=== PATIENT | male | born 1970 | race Caucasian/White ===

== ENCOUNTER → 2017-09-20 | Outpatient (CLI) | payer BC ==
--- NOTE | 2017-09-20 11:41 | US ---
EXAMINATION TYPE: US renal artery duplex complet DATE OF EXAM: 09/20/2017 COMPARISON: NONE CLINICAL HISTORY: I10 Essential hypertension x 10 years; HT 5'11, WT 305lbs US exam is technically limited by overlying bowel gas and large body habitus for Renal Artery, etc., Doppler Assessment. MEASUREMENTS: RENAL SIZE: Rt Kidney: 11.8 x 6.2 x 4.7cm Lt Kidney: 11.6 x 6.8 x 6.9cm RESISTANCE INDEX Right: 0.65 mid Left: 0.63 mid RA/AO RATIO (< 3.5 ) Right: 0.9 Left: 0.8 RA VELOCITY ( < 180 cm/s) Right: 90.8cm/s proximally Left: 85.1cm/s proximally Aorta: size is wnl and vessel is limitedly seen due to large abdominal habitus. Right kidney: no hydronephrosis or masses are seen. Incidental right liver cyst is seen = 1.0 x 0.8 x 0.7cm. Left kidney: mid pole cyst = 1.8 x 1.7 x 1.4cm. Small calcification seen posterior to cyst may be ves dhruv wall calcification with posterior shadowing. IMPRESSION: 1. No sonographic evidence of renal arterial stenosis. 2. Slightly limiting evaluation of the abdominal aorta due to patient body habitus. 3. Incidentally noted hepatic cyst and left renal cyst.
== END | disposition home or self-care (01) ==
LOC: RADUSMAIN 08:45
PROVIDERS: ATTEND Family Medicine
DX: R93.5 Abnormal findings on diagnostic imaging of other abdominal regions, including retroperitoneum (principal); I10 Essential (primary) hypertension
CPT/HCPCS: 93975

== ENCOUNTER → 2018-02-05 | Outpatient (CLI) | payer BC ==
--- NOTE | 2018-02-05 11:21 | US ---
EXAMINATION TYPE: US abdomen complete DATE OF EXAM: 02/05/2018 COMPARISON: None CLINICAL HISTORY: R14.0 ABD DISTENSION. Pt complains of ABD bloating EXAM MEASUREMENTS: Liver Length: 19.3 cm Gallbladder Wall: 0.2 cm CBD: 0.5 cm Spleen: 12.6 cm Right Kidney: 11.3 x 6.1 x 6.2 cm Left Kidney: 11.7 x 6.5 x 6.5 cm Large pt body habitus, difficult and limited exam Pancreas: Difficult to visualize due to large pt body habitus Liver: Liver difficult to penetrate, Heterogeneous, Multiple cysts, one in left lobe= 0.9 x 1.1 x 0. 8 cm and one visualized within right lobe anterior to GB= 1.6 x 1.3 x 1.2 cm Gallbladder: wnl Evidence for sonographic Zamudio's sign: No CBD: wnl Spleen: wnl Right Kidney: Appeared wnl Left Kidney: Cyst mid= 2.0 x 1.5 x 1.6 cm, laterally shows possible lesion with calcification= 1.8 x 1.5 x 2.8 cm Upper IVC: wnl Abd Aorta: Obscured by overlying bowel gas Visualized pancreas is heterogeneous, significant portions are suboptimally evaluated due to shadowin g from overlying bowel gas and patient's large body habitus. Aorta is suboptimally evaluated on image s saved. IVC is seen at hepatic dome. Visualized liver is heterogeneously hyperechoic. Evaluation for focal masses is suboptimal due to the heterogeneity. No intrahepatic ductal dilatation is seen. Gall bladder is evident without shadowing mobile gallstones. Technologist whyte simple appearing 1.[address] in the left kidney on image 48. There is shadowing hyperechoic focus could reflect 1.5 cm calculus laterally left kidney on current study. IMPRESSION: Suboptimal study without focal ascites. Possible new large left-sided renal calculus vers us calcified mass. Consider plain film correlation. Suspect diffuse fatty infiltration of liver.
== END | disposition home or self-care (01) ==
LOC: RADUSWWP 10:42
PROVIDERS: ATTEND Family Medicine
DX: R14.0 Abdominal distension (gaseous) (principal)
CPT/HCPCS: 76700

== ENCOUNTER → 2019-04-29 | Day surgery (SDC) | payer BC ==
[2019-04-27 15:56] VITALS: BMI 43.0
[~2019-04-29] MED LIST: LACTATED RINGERS 1,000 ML IV ONE; LACTATED RINGERS 1,000 ML IV SCH; LIDOCAINE 1% (10MG/ML) FOR IV START INTRADERMA PRN; LIDOCAINE 1% INJ 10MG/ML (20 ML MDV) ONE; PROPOFOL 10 MG/ML 20 ML VIAL IV ONE
[2019-04-29 08:52] VITALS: TEMP 97.2
--- NOTE | 2019-04-29 10:20 | P.PCN ---
Date of Procedure: 04/29/19 Description of Procedure: PREOPERATIVE DIAGNOSIS: Gastroesophageal reflux disease. Morbid obesity. POSTOPERATIVE DIAGNOSIS: Morbid obesity. Gastritis. Gastroesophageal reflux disease. OPERATION: Esophagogastroduodenoscopy with biopsies along antrum. SURGEON: Nieves Villalobos MD ANESTHESIA: MAC. INDICATIONS: The patient is a 49-year-old male who presents with a history of reflux disease. Benefits and risks of the procedure were described. Informed consent was obtained. DESCRIPTION: The patient was brought into the endoscopy suite and laid in the left lateral decubitus position. An Olympus gastroscope was passed along the posterior oropharynx down to the distal esophagus where the squamocolumnar junction was encountered at 46 cm from the incisors. The stomach was entered and no bile reflux was found. Additional findings are listed below. Biopsies with cold forceps were obtained of the antrum. The first through third portion of the duodenum was examined and unremarkable. Retroflexion of the scope confirmed Hill grade 3 lower esophageal valve. The squamocolumnar junction demonstrated LA grade A erosive esophagitis. The stomach was desufflated. The patient tolerated the procedure well. FINDINGS: Squamocolumnar junction 46 cm from the incisors. Diaphragmatic hiatus at 46 cm. Hill grade 3 lower esophageal valve. LA grade A erosive esophagitis. No active duodenitis. Chronic gastritis RECOMMENDATIONS: Upper endoscopy as needed.
--- NOTE | 2019-04-29 10:24 | P.PCN ---
Date of Procedure: 04/29/19 Description of Procedure: PREOPERATIVE DIAGNOSIS: Colonoscopy screening. POSTOPERATIVE DIAGNOSIS: Colonoscopy screening. OPERATION: Colonoscopy to the ileocecal valve and appendiceal orifice. SURGEON: Nieves Villalobos MD. ANESTHESIA: MAC. INDICATIONS: The patient is a 49-year-old male who presents for his first colonoscopy screening. Benefits and risks were described and informed consent was obtained. DESCRIPTION OF PROCEDURE: The patient had undergone Suprep. He had been brought into the operating room and laid in the left lateral decubitus position. After adequate intravenous sedation, the rectum was examined with 2% lidocaine jelly. No external hemorrhoids were encountered. The prostate fossa was unremarkable The rectal tone was within normal limits. No lesions were palpated in the rectal vault. An Olympus colonoscope was advanced until the ileocecal valve and appendiceal orifice were clearly viewed. The prep was fair. No large scattered diverticulosis was encountered. No adenomatous polyps were found. No evidence of focal colitis was found. Retroflexion of the scope demonstrated grade 1 internal hemorrhoids without active bleeding or inflammation. The colon was desufflated. The patient had tolerated the procedure well. Withdrawal time was over 6 minutes. FINDINGS: Aronchick preparation quality scale 2 (1-5) Internal hemorrhoids, grade 1 No external prolapsed hemorrhoids. No arteriovenous malformations. No adenomatous polyps. No focal colitis. RECOMMENDATIONS: Lower endoscopy in 5 years, 2024 Plan - Discharge Summary Discharge Rx Participant: No New Discharge Prescriptions: Continue amLODIPine [Norvasc] 10 mg PO DAILY Furosemide [Lasix] 40 mg PO DAILY PRN PRN Reason: Edema hydrALAZINE HCL [Apresoline] 100 mg PO TID Labetalol HCl 200 mg PO BID Allopurinol [Zyloprim] 300 mg PO DAILY Telmisartan 80 mg PO DAILY Discharge Medication List Allopurinol [Zyloprim] 300 mg PO DAILY 04/27/19 [History] Furosemide [Lasix] 40 mg PO DAILY PRN 04/27/19 [History] Labetalol HCl 200 mg PO BID 04/27/19 [History] Telmisartan 80 mg PO DAILY 04/27/19 [History] amLODIPine [Norvasc] 10 mg PO DAILY 04/27/19 [History] hydrALAZINE HCL [Apresoline] 100 mg PO TID 04/27/19 [History] Follow up Appointment(s)/Referral(s): Nieves Villalobos MD [STAFF PHYSICIAN] - 05/14/19 Patient Instructions/Handouts: Gastroesophageal Reflux Disease (DC) Activity/Diet/Wound Care/Special Instructions: Repeat colonoscopy in 5 years, 2024 or Cologaurd Discharge Disposition: HOME SELF-CARE
--- NOTE | 2019-04-29 10:25 | P.GSHP ---
History of Present Illness H&P Date: 04/29/19 CHIEF COMPLAINT: GERD and colon screen HISTORY OF PRESENT ILLNESS: The patient is a 49-year-old male who presents with gastroesophageal reflux disease and need for colon screen. Upper and lower endoscopy were offered for further evaluation and management. PAST MEDICAL HISTORY: Please see list. PAST SURGICAL HISTORY: Please see list. MEDICATIONS: Please see list. ALLERGIES: Please see list. SOCIAL HISTORY: No illicit drug use FAMILY HISTORY: No reports of Crohn disease or ulcerative colitis. REVIEW OF ORGAN SYSTEMS: CONSTITUTIONAL: No reports of fevers or chills. GI: Denies any blood in stools or constipation. PHYSICAL EXAM: VITAL SIGNS: Stable GENERAL: Well-developed pleasant in no acute distress. HEENT: No scleral icterus. Extraocular movements grossly intact. Moist buccal mucosa. NECK: Supple without lymphadenopathy. CHEST: Unlabored respirations. Equal bilateral excursions. CARDIOVASCULAR: Regular rate and rhythm. Distal 2+ pulses. ABDOMEN: Soft, nondistended. MUSCULOSKELETAL: No clubbing, cyanosis, or edema. ASSESSMENT: 1. Gastroesophageal reflux disease 2. Colon screen. PLAN: 1. Recommend proceeding with an upper and lower endoscopy Past Medical History Past Medical History: Asthma, GERD/Reflux, Hypertension, Renal Disease, Sleep Apnea/CPAP/BIPAP Additional Past Medical History / Comment(s): gout. has cpap, asthma as a child, decreased kidney function History of Any Multi-Drug Resistant Organisms: None Reported Additional Past Surgical History / Comment(s): wisdom teeth Past Anesthesia/Blood Transfusion Reactions: No Reported Reaction Additional Past Anesthesia/Blood Transfusion Reaction / Comment(s): during dental procedures requires extra anesthesia Smoking Status: Never smoker - Past Family History Mother Family Medical History: No Reported History Medications and Allergies Home Medications Medication Instructions Recorded Confirmed Type Allopurinol [Zyloprim] 300 mg PO DAILY 04/27/19 04/27/19 History Furosemide [Lasix] 40 mg PO DAILY PRN 04/27/19 04/27/19 History Labetalol HCl 200 mg PO BID 04/27/19 04/27/19 History Telmisartan 80 mg PO DAILY 04/27/19 04/27/19 History amLODIPine [Norvasc] 10 mg PO DAILY 04/27/19 04/27/19 History hydrALAZINE HCL [Apresoline] 100 mg PO TID 04/27/19 04/27/19 History Allergies Allergy/AdvReac Type Severity Reaction Status Date / Time shellfish derived [Shellfish] Allergy Anaphylaxis Verified 04/27/19 15:46 Surgical - Exam Vital Signs Temp Pulse Resp BP Pulse Ox 97.2 F L 79 18 176/104 97 04/29/19 08:51 04/29/19 08:51 04/29/19 08:51 04/29/19 08:51 04/29/19 08:51
[2019-04-29 10:41] VITALS: BP 176/92; PULSE 78; RESP 18
== END | disposition home or self-care (01) ==
LOC: ORWHC2ENDO 08:32
PROVIDERS: ATTEND Surgery Plastic and Reconstructive Surgery
DX: Z12.11 Encounter for screening for malignant neoplasm of colon (principal); K64.8 Other hemorrhoids; K29.50 Unspecified chronic gastritis without bleeding; K21.0 Gastro-esophageal reflux disease with esophagitis; K22.70 Barrett's esophagus without dysplasia; J45.909 Unspecified asthma, uncomplicated; I10 Essential (primary) hypertension; G47.33 Obstructive sleep apnea (adult) (pediatric); M10.9 Gout, unspecified; E66.01 Morbid (severe) obesity due to excess calories; Z91.013 Allergy to seafood; Z79.899 Other long term (current) drug therapy; Z98.818 Other dental procedure status
CPT/HCPCS: 88305; 43239; J2001; J2704; G0121

== ENCOUNTER 2019-10-24 11:02 | Inpatient (IN) | payer BC ==
[2019-10-24] MEDS ORDERED: SODIUM CHLORIDE 0.9% 500 ML 500 ML IV STA (11:20)
[2019-10-24] MEDS ORDERED: DILTIAZEM DRIP BOLUS FROM BAG 1 MG SOLN IV ONE (11:21)
[2019-10-24] MEDS ORDERED: HEPARIN SODIUM,PORCINE 5,000 UNIT/ML 1 ML VIAL IV ONE (11:25)
--- NOTE | 2019-10-24 11:26 | ED ---
General Adult HPI - General Chief complaint: Arrhythmia/Palpitations Stated complaint: abnormal EKG Time Seen by Provider: 10/24/19 11:10 Source: patient, RN notes reviewed, old records reviewed Mode of arrival: ambulatory Limitations: no limitations - History of Present Illness Initial comments: This is a 49-year-old male with a past medical history significant for hypertension. Patient states last few days he's been feeling his heart race he's been a little bit short of breath per patient denies any chest pain. Patient denies any recent fever chills or cough. Patient denies any abdominal pain patient has nausea vomiting diarrhea. Patient denies any lightheadedness dizziness or near syncopal episode. Patient denies any patient denies numbness weakness. Patient denies any leg swelling or calf tenderness. Patient denies similar symptoms. Patient states went to the primary medical care doctor's office and they did an EKG and told him he was in SVT. - Related Data Home Medications Medication Instructions Recorded Confirmed Furosemide [Lasix] 40 mg PO DAILY PRN 04/27/19 10/24/19 Labetalol HCl 200 mg PO DAILY 04/27/19 10/24/19 Telmisartan 80 mg PO DAILY 04/27/19 10/24/19 allopurinoL [Zyloprim] 300 mg PO DAILY PRN 04/27/19 10/24/19 hydrALAZINE HCL [Apresoline] 100 mg PO TID 04/27/19 10/24/19 Albuterol Inhaler [Ventolin Hfa 2 puff INHALATION RT-QID PRN 10/24/19 10/24/19 Inhaler] Ubidecarenone [Co Q-10] 100 mg PO DAILY 10/24/19 10/24/19 Allergies Allergy/AdvReac Type Severity Reaction Status Date / Time shellfish derived [Shellfish] Allergy Anaphylaxis Verified 10/24/19 12:06 Review of Systems ROS Statement: Those systems with pertinent positive or pertinent negative responses have been documented in the HPI. ROS Other: All systems not noted in ROS Statement are negative. Past Medical History Past Medical History: Asthma, GERD/Reflux, Hypertension, Renal Disease, Sleep Apnea/CPAP/BIPAP Additional Past Medical History / Comment(s): gout. has cpap, asthma as a child, decreased kidney function History of Any Multi-Drug Resistant Organisms: None Reported Additional Past Surgical History / Comment(s): wisdom teeth Past Anesthesia/Blood Transfusion Reactions: No Reported Reaction Additional Past Anesthesia/Blood Transfusion Reaction / Comment(s): during dental procedures requires extra anesthesia Past Psychological History: No Psychological Hx Reported Smoking Status: Never smoker Past Alcohol Use History: Occasional Past Drug Use History: None Reported - Past Family History Mother Family Medical History: No Reported History General Exam - General Exam Comments Initial Comments: GENERAL: Patient is well-developed and well-nourished. Patient is nontoxic and well-hyd rated and is in mild distress. ENT: Neck is soft and supple. No significant lymphadenopathy is noted. Oropharynx is clear. Moist mucous membranes. Neck has full range of motion without eliciting any pain. EYES: The sclera were anicteric and conjunctiva were pink and moist. Extraocular movements were intact and pupils were equal round and reactive to light. Eyelids were unremarkable. PULMONARY: Unlabored respirations. Good breath sounds bilaterally. No audible rales rhonchi or wheezing was noted. CARDIOVASCULAR: Patient is tachycardic at about 150 beats a minute ABDOMEN: Soft and nontender with normal bowel sounds. SKIN: Skin is clear with no lesions or rashes and otherwise unremarkable. NEUROLOGIC: Patient is alert and oriented x3. Cranial nerves II through XII are grossly intact. Motor and sensory are also intact. Normal speech, volume and content. Symmetrical smile. MUSCULOSKELETAL: Normal extremities with adequate strength and full range of motion. No lower extremity swelling or edema. No calf tenderness. LYMPHATICS: No significant lymphadenopathy is noted PSYCHIATRIC: Normal psychiatric evaluation. Limitations: no limitations Course Vital Signs 10/24/19 10/24/19 10/24/19 11:08 11:17 11:40 Temperature 98.3 F Pulse Rate 158 H 156 H Pulse Rate [ 155 H Apical] Respiratory 18 18 Rate Blood Pressure 188/120 161/99 O2 Sat by Pulse 97 96 Oximetry 10/24/19 11:44 Temperature Pulse Rate 156 H Pulse Rate [ Apical] Respiratory 18 Rate Blood Pressure 155/97 O2 Sat by Pulse 96 Oximetry Medical Decision Making - Medical Decision Making EKG shows atrial flutter with a 2-1 block at 156 bpm DC interval is 152 QRS is 126 QT interval is 260 QTC is 431. Patient's EKG shows no ST segment elevation there is some T-wave abnormalities in the inferior leads Patient was started on heparin the Cardizem drip after I gave the patient a Cardizem bolus. Patient has slightly elevated troponin. I spoke with Dr. Nikolay Link wanted the patient started on Lopressor 25 mg twice a day twice a day. He also wanted the in THE ABDOMEN TO RULE OUT A INFERIOR VENA CAVA CLOT - Lab Data Result diagrams: 10/24/19 11:45 10/24/19 11:45 Lab Results 10/24/19 10/24/19 10/24/19 Range/Units 11:45 11:45 11:45 WBC 14.7 H (3.8-10.6) k/uL RBC 4.67 (4.30-5.90) m/uL Hgb 14.0 (13.0-17.5) gm/dL Hct 43.7 (39.0-53.0) % MCV 93.6 (80.0-100.0) fL MCH 29.9 (25.0-35.0) pg MCHC 32.0 (31.0-37.0) g/dL RDW 14.8 (11.5-15.5) % Plt Count 297 (150-450) k/uL Neutrophils % 83 % Lymphocytes % 11 % Monocytes % 4 % Eosinophils % 1 % Basophils % 0 % Neutrophils # 12.1 H (1.3-7.7) k/uL Lymphocytes # 1.7 (1.0-4.8) k/uL Monocytes # 0.6 (0-1.0) k/uL Eosinophils # 0.2 (0-0.7) k/uL Basophils # 0.1 (0-0.2) k/uL PT 10.7 (9.0-12.0) sec INR 1.0 (<1.2) APTT 24.7 (22.0-30.0) sec Sodium 138 (137-145) mmol/L Potassium 4.5 (3.5-5.1) mmol/L Chloride 107 (98-107) mmol/L Carbon Dioxide 21 L (22-30) mmol/L Anion Gap 10 mmol/L BUN 19 (9-20) mg/dL Creatinine 1.65 H (0.66-1.25) mg/dL Est GFR (CKD-EPI)AfAm 55 (>60 ml/min/1.73 sqM) Est GFR (CKD-EPI)NonAf 47 (>60 ml/min/1.73 sqM) Glucose 105 H (74-99) mg/dL Calcium 9.0 (8.4-10.2) mg/dL Magnesium 1.9 (1.6-2.3) mg/dL Total Bilirubin 2.0 H (0.2-1.3) mg/dL AST 29 (17-59) U/L ALT 33 (4-49) U/L Alkaline Phosphatase 73 (38-126) U/L Troponin I (0.000-0.034) ng/mL Total Protein 6.9 (6.3-8.2) g/dL Albumin 4.2 (3.5-5.0) g/dL TSH 2.430 (0.465-4.680) mIU/L 10/24/19 Range/Units 11:45 WBC (3.8-10.6) k/uL RBC (4.30-5.90) m/uL Hgb (13.0-17.5) gm/dL Hct (39.0-53.0) % MCV (80.0-100.0) fL MCH (25.0-35.0) pg MCHC (31.0-37.0) g/dL RDW (11.5-15.5) % Plt Count (150-450) k/uL Neutrophils % % Lymphocytes % % Monocytes % % Eosinophils % % Basophils % % Neutrophils # (1.3-7.7) k/uL Lymphocytes # (1.0-4.8) k/uL Monocytes # (0-1.0) k/uL Eosinophils # (0-0.7) k/uL Basophils # (0-0.2) k/uL PT (9.0-12.0) sec INR (<1.2) APTT (22.0-30.0) sec Sodium (137-145) mmol/L Potassium (3.5-5.1) mmol/L Chloride (98-107) mmol/L Carbon Dioxide (22-30) mmol/L Anion Gap mmol/L BUN (9-20) mg/dL Creatinine (0.66-1.25) mg/dL Est GFR (CKD-EPI)AfAm (>60 ml/min/1.73 sqM) Est GFR (CKD-EPI)NonAf (>60 ml/min/1.73 sqM) Glucose (74-99) mg/dL Calcium (8.4-10.2) mg/dL Magnesium (1.6-2.3) mg/dL Total Bilirubin (0.2-1.3) mg/dL AST (17-59) U/L ALT (4-49) U/L Alkaline Phosphatase (38-126) U/L Troponin I 0.052 H* (0.000-0.034) ng/mL Total Protein (6.3-8.2) g/dL Albumin (3.5-5.0) g/dL TSH (0.465-4.680) mIU/L Critical Care Time Critical Care Time: Yes Total Critical Care Time: 35 Disposition Clinical Impression: Hypertensive urgency, Atrial flutter, Renal insufficiency, Elevated troponin Disposition: ADMITTED IP TO THIS HOSP Referrals: Geronimo England MD [Primary Care Provider] - 1-2 days Time of Disposition: 13:05
[2019-10-24] MEDS ORDERED: DILTIAZEM 125 MG in SODIUM CHLORIDE 0.9% 100 ML IV SCH (11:30)
[2019-10-24] MEDS ORDERED: HEPARIN SOD,PORK IN 0.45% NACL 25,000 UNIT in 0.45% NACL 1 250ML.BAG IV SCH (11:30)
[2019-10-24 12:12] LABS: Albumin 4.2 g/dL (3.5-5.0); Magnesium 1.9 mg/dL (1.6-2.3); Potassium 4.5 mmol/L (3.5-5.1); Total Protein 6.9 g/dL (6.3-8.2)
[2019-10-24 12:13] LABS: Basophils # (A) 0.1 k/uL (0-0.2); Basophils % (A) 0 %; Eosinophils # (A) 0.2 k/uL (0-0.7); Eosinophils % (A) 1 %; HCT 43.7 % (39.0-53.0); Lymphocytes # (A) 1.7 k/uL (1.0-4.8); Lymphocytes % (A) 11 %; MCH 29.9 pg (25.0-35.0); MCV 93.6 fL (80.0-100.0); Mean Platelet Volume 8.6; Monocytes # (A) 0.6 k/uL (0-1.0); Monocytes % (A) 4 %; Neutrophils # (A) 12.1 k/uL (1.3-7.7); Neutrophils % (A) 83 %; Platelet Count 297 k/uL (150-450); RBC 4.67 m/uL (4.30-5.90); RDW 14.8 % (11.5-15.5); WBC 14.7 k/uL (3.8-10.6)
[2019-10-24 12:24] LABS: Partial Thromboplastin Time 24.7 sec (22.0-30.0); Prothrombin Time 10.7 sec (9.0-12.0)
--- NOTE | 2019-10-24 12:30 | XR ---
EXAMINATION TYPE: XR chest 2V DATE OF EXAM: 10/24/2019 COMPARISON: None HISTORY: 49-year-old male dysrhythmia, rapid heart rate TECHNIQUE: PA and lateral views FINDINGS: Heart is mildly enlarged. Diffuse interstitial density. No consolidation or pleural effusion seen. IMPRESSION: Mild cardiomegaly. Given diffuse interstitial density, correlate to exclude mild CHF with pulmonary v ascular congestion. Atypical pneumonias would be an alternative consideration if no signs of fluid ov erload.
[2019-10-24] MEDS ORDERED: METOPROLOL TARTRATE 25 MG TAB PO STA (13:03)
[2019-10-24] MEDS ORDERED: NITROGLYCERIN SL TABS 0.4 MG TAB SUBLINGUAL PRN (13:05)
[2019-10-24 13:57] LABS: Amphetamine Screen,Urine Not Detected (NotDetected); Barbiturate Screen,Urine Not Detected (NotDetected); Benzodiazepines Screen,Urine Not Detected (NotDetected); Cocaine Screen,Urine Not Detected (NotDetected); Methadone Screen, Urine Not Detected (NotDetected); Opiate Screen,Urine Not Detected (NotDetected); Oxycodone Screen, Urine Not Detected (NotDetected); Phencyclidine Screen,Urine Not Detected (NotDetected); Tricyclic Antidepressant,Urine Not Detected (NotDetected); Urn Cannabinoid Scrn Not Detected (NotDetected)
[2019-10-24] MEDS ORDERED: allopurinoL 300 MG TAB PO PRN (18:06)
[2019-10-24] MEDS: METOPROLOL TARTRATE 50 MG TAB PO SCH (20:21)
[2019-10-24] MEDS ORDERED: FUROSEMIDE 10 MG/ML 4 ML VIAL IV STA (21:48)
--- NOTE | 2019-10-24 22:11 | P.HPIM ---
History of Present Illness H&P Date: 10/24/19 Chief Complaint: Short of breath History of presenting complaint: This is a [address] England. Has noticed perspective for last 2 days increasingly short of breath. Slight slight dry cough. No fever no chills. Also felt his heart racing. In the doctor's office was sent in for a possible SVT. ER determined to be in atrial flutter put on a Cardizem drip. Also 25 mg Lopressor was given. No fever no chills. It seems as an outpatient. Had some uncontrolled blood pressure and his family doctor's been kind of control the same. He is to see Dr. Wise in the cardiology office. Did have a negative nuclear stress test back in March. This evening patient converted to sinus rhythm. After an hour or receiving by mouth Lopressor 50 mg. Patient is still short of breath. Review of systems: GEN.: Tired EYES: None HEENT: None NECK: None RESPIRATORY: As above CARDIOVASCULAR: As above GASTROINTESTINAL: None GENITOURINARY: None MUSCULOSKELETAL: None LYMPHATICS: None HEMATOLOGICAL: None PSYCHIATRY: None NEUROLOGICAL: None Past medical history to include: Asthma, hypertension, chronic kidney disease, obstructive sleep apnea uses CPAP, as well as a child, Social history: . 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 Denies use of recreational drugs. Alcohol occasionally. No smoking. Family history: Patient adopted Physical examination: VITAL SIGNS: 98.3, 158, 18, 161/99, 96% room air upon presentation GENERAL: BMI 42.7, sitting up in bed, slightly short of breath. EYES: Pupils equal. Conjunctiva normal. HEENT: External appearance of nose and ears normal, oral cavity grossly normal. NECK: JVD not raised; masses not palpable. HEART: First and second heart sounds are normal; no edema. LUNGS: Respiratory rate increased; fair entry. ABDOMEN: Soft, nontender, liver spleen not palpable, no masses palpable. PSYCH: Alert and oriented x3; mood and affect normal. NEUROLOGICAL: Cranial nerves grossly intact; no facial asymmetry, power and sensation grossly intact. LYMPHATICS: No lymph nodes palpable in the axilla and neck INVESTIGATIONS, reviewed in the clinical context: EKG tracing personally reviewed by me-atrial pineda with 2: 1 conduction. Ventricular rate of 150 Chest x-ray film personally reviewed by me-cardiomegaly, prominent pulmonary artery White count 40.7 hemoglobin 14 potassium 4.5 creatinine 1.65 Troponin I 0.052, 0.056, 0.057 Urine drug screen negative Assessment: -New onset of atrial flutter with a rapid ventricular rate, symptomatic symptoms present for over 2 days. Was put on IV Cardizem in the ER and started on Lopressor. This evening patient converted back to sinus rhythm. 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 Also put on Lopressor 50 mg twice a day. Both cartilage and nephrology been consulted. 2-D echocardiogram has been ordered. Patient given 1 dose of IV Lasix 40 mg. Also put on IV heparin in the ER. Care was discussed with the patient question also. Past Medical History Past Medical History: Asthma, Hypertension, Renal Disease, Sleep Apnea/CPAP/BIPAP Additional Past Medical History / Comment(s): gout. has cpap, asthma as a child, decreased kidney function History of Any Multi-Drug Resistant Organisms: None Reported Additional Past Surgical History / Comment(s): wisdom teeth, Testosterone pellets implanted in bilateral buttock Past Anesthesia/Blood Transfusion Reactions: No Reported Reaction Additional Past Anesthesia/Blood Transfusion Reaction / Comment(s): during dent al procedures requires extra anesthesia Past Psychological History: No Psychological Hx Reported Smoking Status: Never smoker Past Alcohol Use History: Occasional Past Drug Use History: None Reported - Past Family History Mother Family Medical History: No Reported History Additional Family Medical History / Comment(s): adopted Medications and Allergies Home Medications Medication Instructions Recorded Confirmed Type Furosemide [Lasix] 40 mg PO DAILY PRN 04/27/19 10/24/19 History Labetalol HCl 200 mg PO DAILY 04/27/19 10/24/19 History Telmisartan 80 mg PO DAILY 04/27/19 10/24/19 History allopurinoL [Zyloprim] 300 mg PO DAILY PRN 04/27/19 10/24/19 History hydrALAZINE HCL [Apresoline] 100 mg PO TID 04/27/19 10/24/19 History Albuterol Inhaler [Ventolin Hfa 2 puff INHALATION RT-QID PRN 10/24/19 10/24/19 History Inhaler] Ubidecarenone [Co Q-10] 100 mg PO DAILY 10/24/19 10/24/19 History Allergies Allergy/AdvReac Type Severity Reaction Status Date / Time shellfish derived [Shellfish] Allergy Anaphylaxis Verified 10/24/19 12:06 Physical Exam Vitals: Vital Signs Temp Pulse Pulse Resp BP BP Pulse Ox 10/24/19 16:00 150 H 18 10/24/19 15:08 98.3 F 150 H 18 125/69 93 L 10/24/19 14:26 149 H 18 100 10/24/19 13:37 155 H 18 164/88 100 10/24/19 13:11 156 H 154/107 98 10/24/19 11:44 156 H 18 155/97 96 10/24/19 11:40 156 H 18 161/99 96 10/24/19 11:17 155 H 10/24/19 11:08 98.3 F 158 H 18 188/120 97 Intake and Output 10/24/19 10/24/19 10/24/19 06:59 14:59 22:59 Intake Total 10.833 225 Balance 10.833 225 Intake: Intake, IV Titration 10.833 Amount Diltiazem 125 mg In 10.833 Sodium Chloride 0.9% 100 ml @ 5 MG/HR 5 mls/hr IV .Q24H [facility] Rx#:[id number] Oral 225 Other: # Voids 1 Weight 138.799 kg 138.799 kg Results CBC & Chem 7: 10/24/19 11:45 10/24/19 11:45 Labs: Abnormal Lab Results - Last 24 Hours (Table) 10/24/19 10/24/19 10/24/19 Range/Units 11:45 11:45 11:45 WBC 14.7 H (3.8-10.6) k/uL Neutrophils # 12.1 H (1.3-7.7) k/uL Carbon Dioxide 21 L (22-30) mmol/L Creatinine 1.65 H (0.66-1.25) mg/dL Glucose 105 H (74-99) mg/dL Total Bilirubin 2.0 H (0.2-1.3) mg/dL Troponin I 0.052 H* (0.000-0.034) ng/mL 10/24/19 10/24/19 Range/Units 14:45 17:50 WBC (3.8-10.6) k/uL Neutrophils # (1.3-7.7) k/uL Carbon Dioxide (22-30) mmol/L Creatinine (0.66-1.25) mg/dL Glucose (74-99) mg/dL Total Bilirubin (0.2-1.3) mg/dL Troponin I 0.056 H* 0.057 H* (0.000-0.034) ng/mL Thrombosis Risk Factor Assmnt - Choose All That Apply Any of the Below Risk Factors Present?: Yes Each Factor Represents 1 point: Abnormal pulmonary function (COPD), Age 41-60 years, Obesity (BMI >25) Other Risk Factors: No Other congenital or acquired thrombophilia - If yes, enter type in comment: No Thrombosis Risk Factor Assessment Total Risk Factor Score: 3 Thrombosis Risk Factor Assessment Level: Moderate Risk
[2019-10-25] MEDS: ALBUTEROL NEBULIZED 2.5 MG/3 ML INHALATION PRN ×3 (03:34→20:17)
[2019-10-25 04:03] LABS: Cholesterol 164 mg/dL (<200); HDL Cholesterol 32 mg/dL (40-60); LDL Cholesterol,Calculated 115 mg/dL (0-99); Triglycerides 85 mg/dL (<150)
[2019-10-25] MEDS ORDERED: HEPARIN SODIUM,PORCINE 5,000 UNIT/ML 1 ML VIAL IV PRN (04:10)
[2019-10-25] MEDS ORDERED: METOPROLOL TARTRATE 25 MG TAB PO SCH (06:00)
[2019-10-25] MEDS: METOPROLOL TARTRATE 50 MG TAB PO SCH ×2 (08:48→20:39)
[2019-10-25] MEDS ORDERED: ASPIRIN 325 MG TAB PO SCH (09:00)
[2019-10-25] MEDS ORDERED: LOSARTAN 50 MG TAB PO SCH (09:00)
--- NOTE | 2019-10-25 10:13 | P.CRDCN ---
History of Present Illness Consult date: 10/25/19 History of present illness: CHIEF COMPLAINT: A flutter with RVR HISTORY OF PRESENT ILLNESS: 49-year-old male with history of hypertension, hyperlipidemia, chronic kidney disease, and sleep apnea who presented to the emergency room secondary to abnormal EKG. Patient states he is had chest congestion and upper respiratory infection for the last 2-3 days. He also reports feeling palpitations occasionally over the last couple days. He went to urgent care yesterday for evaluation and an EKG was completed and patient was instructed to come to the emergency room. Patient was found to be in a flutter with RVR upon arrival to the ER. Patient was started on IV heparin and given a Cardizem bolus. Patient examined this morning at the bedside. Patient states he follows with Dr. Varela outpatient. He reports having a stress test in the beginning of the year and believes it was negative. Patient currently denies palpitations. Patient denies chest pain. He reports shortness of breath but states it is improved after receiving a nebulizer treatment. He is currently on 4 L nasal cannula and maintaining oxygen saturations greater than 92%. Patient denies wearing oxygen at home. He is a nonsmoker. DIAGNOSTICS: EKG reveals atrial flutter. Heart rate 156 Chest xray mild cardiomegaly. Given diffuse interstitial densities, correlate to exclude mild CHF with pulmonary vascular congestion. Possible atypical pneumonia. Laboratory data: WBC 14.7. Hemoglobin 14.0. White count 1297. Sodium 138. Potassium 4.5. BUN 19. Creatinine 1.65. Magnesium 1.9. TSH 2.430. Troponin 0.052. 0.056. 0.057 Current home cardiac medications include Telmisartan 80mg daily, hydralazine 100 mg 3 times a day, labetalol 200 mg daily, Lasix 40mg daily when necessary REVIEW OF SYSTEMS: CONSTITUTIONAL: Denies fever or chills. HEENT: Denies blurred vision, vision changes, or eye pain. Denies hemoptysis CARDIOVASCULAR: Denies chest pain, orthopnea, PND. Reports palpitations yesterday RESPIRATORY: Reports shortness of breath. GASTROINTESTINAL: Denies abdominal pain. Denies nausea or vomiting. HEMATOLOGIC: Denies bleeding disorders. GENITOURINARY: Denies any blood in urine. SKIN: Denies pruitis. Denies rash. PHYSICAL EXAM: VITAL SIGNS: Reviewed. GENERAL: Well-developed in no acute distress but appears mildly SOB at time of exam. HEENT: Head is normocephalic. Pupils are equal, round. Sclerae anicteric. Mucous membranes of the mouth are moist. Neck supple. No JVD or thyromegaly LUNGS: Respirations even and unlabored. Lungs with expiratory wheezing noted. HEART: Regular rate and rhythm. S1 and S2 heard. ABDOMEN: Soft. Nontender. EXTREMITIES: Normal range of motion. No clubbing or cyanosis. Peripheral pulses intact. No lower extremity edema NEUROLOGIC: Awake and alert. Oriented x 3. ASSESSMENT: New-onset paroxysmal atrial flutter with RVR Elevated troponins, secondary to above Hypertension Hyperlipidemia Chronic kidney disease, baseline unknown Upper respiratory infection Morbid obesity: BMI 40 2. PLAN: Discontinue IV heparin. Begin Eliquis Continue beta riis Resume hydralazine Monitor blood pressure Obtain 2-D echo to assess cardiac structure and function Nurse practitioner note has been reviewed by physician. Signing provider agrees with the documented findings, assessment, and plan of care. Past Medical History Past Medical History: Asthma, Hypertension, Renal Disease, Sleep Apnea/CPAP/BIPAP Additional Past Medical History / Comment(s): gout. has cpap, asthma as a child, decreased kidney function History of Any Multi-Drug Resistant Organisms: None Reported Additional Past Surgical History / Comment(s): wisdom teeth, Testosterone pellets implanted in bilateral buttock Past Anesthesia/Blood Transfusion Reactions: No Reported Reaction Additional Past Anesthesia/Blood Transfusion Reaction / Comment(s): during dental procedures requires extra anesthesia Past Psychological History: No Psychological Hx Reported Smoking Status: Never smoker Past Alcohol Use History: Occasional Past Drug Use History: None Reported - Past Family History Mother Family Medical History: No Reported History Additional Family Medical History / Comment(s): adopted Medications and Allergies Home Medications Medication Instructions Recorded Confirmed Type Furosemide [Lasix] 40 mg PO DAILY PRN 04/27/19 10/24/19 History Labetalol HCl 200 mg PO DAILY 04/27/19 10/24/19 History Telmisartan 80 mg PO DAILY 04/27/19 10/24/19 History allopurinoL [Zyloprim] 300 mg PO DAILY PRN 04/27/19 10/24/19 History hydrALAZINE HCL [Apresoline] 100 mg PO TID 04/27/19 10/24/19 History Albuterol Inhaler [Ventolin Hfa 2 puff INHALATION RT-QID PRN 10/24/19 10/24/19 History Inhaler] Ubidecarenone [Co Q-10] 100 mg PO DAILY 10/24/19 10/24/19 History Allergies Allergy/AdvReac Type Severity Reaction Status Date / Time shellfish derived [Shellfish] Allergy Anaphylaxis Verified 10/24/19 12:06 Physical Exam Vitals: Vital Signs Temp Pulse Pulse Resp BP BP Pulse Ox 10/25/19 04:00 98.9 F 115 H 16 158/99 96 10/25/19 03:44 105 H 10/25/19 03:34 113 H 10/25/19 00:00 98.4 F 95 19 141/98 93 L 10/24/19 20:00 98.4 F 149 H 19 128/76 97 10/24/19 16:00 150 H 18 10/24/19 15:08 98.3 F 150 H 18 125/69 93 L 10/24/19 14:26 149 H 18 100 10/24/19 13:37 155 H 18 164/88 100 10/24/19 13:11 156 H 154/107 98 10/24/19 11:44 156 H 18 155/97 96 10/24/19 11:40 156 H 18 161/99 96 10/24/19 11:17 155 H 10/24/19 11:08 98.3 F 158 H 18 188/120 97 Intake and Output 10/24/19 10/25/19 10/25/19 22:59 06:59 14:59 Intake Total 315.5 78.217 Balance 315.5 78.217 Intake: Intake, IV Titration 90.5 78.217 Amount Heparin Sod,Pork in 0.45% 90.5 78.217 NaCl 25,000 unit In 0.45 % NaCl 1 250ml.bag @ 7. 205 UNITS/KG/HR 10 mls/hr IV .Q24H [facility] Rx#: [id number] Oral 225 Other: Voiding Method Toilet Toilet # Voids 1 1 Weight 138.799 kg 139.3 kg Results 10/24/19 11:45 10/24/19 11:45 Cardiac Enzymes 09/05/20 09/05/20 09/05/20 Range/Units 11:45 11:45 14:45 AST 29 (17-59) U/L Troponin I 0.052 H* 0.056 H* (0.000-0.034) ng/mL 10/24/19 Range/Units 17:50 AST (17-59) U/L Troponin I 0.057 H* (0.000-0.034) ng/mL Coagulation 10/24/19 10/24/19 10/25/19 Range/Units 11:45 20:50 03:34 PT 10.7 (9.0-12.0) sec APTT 24.7 26.4 28.7 (22.0-30.0) sec Lipids 10/25/19 Range/Units 03:34 Triglycerides 85 (<150) mg/dL Cholesterol 164 (<200) mg/dL HDL Cholesterol 32 L (40-60) mg/dL CBC 10/24/19 Range/Units 11:45 WBC 14.7 H (3.8-10.6) k/uL RBC 4.67 (4.30-5.90) m/uL Hgb 14.0 (13.0-17.5) gm/dL Hct 43.7 (39.0-53.0) % Plt Count 297 (150-450) k/uL Comprehensive Metabolic Panel 10/24/19 Range/Units 11:45 Sodium 138 (137-145) mmol/L Potassium 4.5 (3.5-5.1) mmol/L Chloride 107 (98-107) mmol/L Carbon Dioxide 21 L (22-30) mmol/L BUN 19 (9-20) mg/dL Creatinine 1.65 H (0.66-1.25) mg/dL Glucose 105 H (74-99) mg/dL Calcium 9.0 (8.4-10.2) mg/dL AST 29 (17-59) U/L ALT 33 (4-49) U/L Alkaline Phosphatase 73 (38-126) U/L Total Protein 6.9 (6.3-8.2) g/dL Albumin 4.2 (3.5-5.0) g/dL Current Medications Generic Name Dose Route Start Last Admin Trade Name Freq PRN Reason Stop Dose Admin Albuterol Sulfate 2.5 mg 10/24/19 18:06 09/06/20 03:34 Ventolin Nebulized INHALATION 2.5 mg RT-QID PRN Administration Shortness Of Breath Allopurinol 300 mg 10/24/19 18:06 Zyloprim PO DAILY PRN GOUT Aspirin 325 mg 10/25/19 09:00 10/25/19 08:48 Aspirin PO 325 mg DAILY [facility] Administration Heparin Sodium (Porcine) 0 unit 10/25/19 04:10 10/25/19 04:17 Heparin IV 4,000 unit PER PROTOCOL PRN Administration Low PTT Protocol Heparin Sodium/Sodium Chloride 250 mls @ 10 mls/hr 10/24/19 11:30 10/25/19 04:12 25,000 unit/ Sodium Chloride IV 11.53 units/kg/hr .Q24H [facility] 16 mls/hr Titration Protocol 7.205 UNITS/KG/HR Losartan Potassium 150 mg 10/25/19 09:00 10/25/19 08:48 Cozaar PO 150 mg DAILY [facility]ANC[facility] Administration Metoprolol Tartrate 50 mg 10/24/19 21:00 10/25/19 08:48 Lopressor PO 50 mg BID FRANCIS Administration Nitroglycerin 0.4 mg 10/24/19 13:05 Nitrostat SUBLINGUAL Q5M PRN Chest Pain Intake and Output 10/24/19 10/25/19 10/25/19 22:59 06:59 14:59 Intake Total 315.5 78.217 Balance 315.5 78.217 Intake: Intake, IV Titration 90.5 78.217 Amount Heparin Sod,Pork in 0.45% 90.5 78.217 NaCl 25,000 unit In 0.45 % NaCl 1 250ml.bag @ 7. 205 UNITS/KG/HR 10 mls/hr IV .Q24H [facility] Rx#: [id number] Oral 225 Other: Voiding Method Toilet Toilet # Voids 1 1 Weight 138.799 kg 139.3 kg 10/24/19 11:45 10/24/19 11:45
[2019-10-25] MEDS: hydrALAZINE HCL 50 MG TAB PO SCH ×3 (10:38→20:39)
[2019-10-25] MEDS: APIXABAN 5 MG TAB PO SCH ×2 (10:38→20:39)
--- NOTE | 2019-10-25 11:33 | P.NPCON ---
History of Present Illness - Reason for Consult Consult date: 10/25/19 acute renal failure - Chief Complaint Palpitations. - History of Present Illness 49-year-old gentleman coming to the hospital with the above complaints. He does have history of chronic kidney disease stage unclear follows with his primary care physician. No history of diabetes. Long history of hypertension more than 20 years. As per him fairly controlled. Denies any NSAID use or recent cont rast studies. No nausea vomiting diarrhea. Presented with A. fib RVR currently in sinus rhythm. Blood pressures uncontrolled. Creatinine 1.67 MG per DL. Review of Systems Constitutional: Reports as per HPI Past Medical History Past Medical History: Asthma, Hypertension, Renal Disease, Sleep Apnea/CPAP/BIPAP Additional Past Medical History / Comment(s): gout. has cpap, asthma as a child, decreased kidney function History of Any Multi-Drug Resistant Organisms: None Reported Additional Past Surgical History / Comment(s): wisdom teeth, Testosterone pellets implanted in bilateral buttock Past Anesthesia/Blood Transfusion Reactions: No Reported Reaction Additional Past Anesthesia/Blood Transfusion Reaction / Comment(s): during dental procedures requires extra anesthesia Past Psychological History: No Psychological Hx Reported Smoking Status: Never smoker Past Alcohol Use History: Occasional Past Drug Use History: None Reported - Past Family History Mother Family Medical History: No Reported History Additional Family Medical History / Comment(s): adopted Medications and Allergies Home Medications Medication Instructions Recorded Confirmed Type Furosemide [Lasix] 40 mg PO DAILY PRN 04/27/19 10/24/19 History Labetalol HCl 200 mg PO DAILY 04/27/19 10/24/19 History Telmisartan 80 mg PO DAILY 04/27/19 10/24/19 History allopurinoL [Zyloprim] 300 mg PO DAILY PRN 04/27/19 10/24/19 History hydrALAZINE HCL [Apresoline] 100 mg PO TID 04/27/19 10/24/19 History Albuterol Inhaler [Ventolin Hfa 2 puff INHALATION RT-QID PRN 10/24/19 10/24/19 History Inhaler] Ubidecarenone [Co Q-10] 100 mg PO DAILY 10/24/19 10/24/19 History Allergies Allergy/AdvReac Type Severity Reaction Status Date / Time shellfish derived [Shellfish] Allergy Anaphylaxis Verified 10/24/19 12:06 Physical Exam Vitals: Vital Signs Temp Pulse Pulse Resp BP BP Pulse Ox 10/25/19 08:00 99.2 F 112 H 18 164/98 97 10/25/19 04:00 98.9 F 115 H 16 158/99 96 10/25/19 03:44 105 H 10/25/19 03:34 113 H 10/25/19 00:00 98.4 F 95 19 141/98 93 L 10/24/19 20:00 98.4 F 149 H 19 128/76 97 10/24/19 16:00 150 H 18 10/24/19 15:08 98.3 F 150 H 18 125/69 93 L 10/24/19 14:26 149 H 18 100 10/24/19 13:37 155 H 18 164/88 100 10/24/19 13:11 156 H 154/107 98 10/24/19 11:44 156 H 18 155/97 96 10/24/19 11:40 156 H 18 161/99 96 Intake and Output 10/24/19 10/25/19 10/25/19 22:59 06:59 14:59 Intake Total 315.5 78.217 Balance 315.5 78.217 Intake: Intake, IV Titration 90.5 78.217 Amount Heparin Sod,Pork in 0.45% 90.5 78.217 NaCl 25,000 unit In 0.45 % NaCl 1 250ml.bag @ 7. 205 UNITS/KG/HR 10 mls/hr IV .Q24H [facility] Rx#: [id number] Oral 225 Other: Voiding Method Toilet Toilet Toilet # Voids 1 1 Weight 138.799 kg 139.3 kg No acute distress S1-S2 heard Decreased breath sounds Abdomen distended Edema Results - Lab Results Most recent lab results Calcium 9.0 mg/dL (8.4-10.2) 10/24/19 11:45 Magnesium 1.9 mg/dL (1.6-2.3) 10/24/19 11:45 10/24/19 11:45 10/24/19 11:45 Assessment and Plan Assessment: #1 acute kidney injury suspect hemodynamics with atrial fibrillation. #2 chronic kidney disease stage III secondary to long history of hypertension, baseline creatinine unknown. #3 hypertension uncontrolled #4 atrial fibrillation currently in sinus rhythm #5 metabolic acidosis secondary to chronic kidney disease #6 edema Plan: #1 check repeat labs today. #2 decrease losartan from 150 mg 100 mg daily. Higher dose will give more side effects. #3 add Lasix 40 mg IV twice a day, at discharge change to by mouth Lasix 40 mg twice a day #4 check bladder scan to rule out urinary retention, strict ins and outs. #5 check urine analysis. He admits having an ultrasound done in the primary office. If renal function does not improve and continue to rise we'll repeat ultrasound in the hospital. #6 avoid nephrotoxic agents and hypotensive episodes.
[2019-10-25 11:43] LABS: Calcium 8.8 mg/dL (8.4-10.2)
[2019-10-25] MEDS: FUROSEMIDE 10 MG/ML 4 ML VIAL IV SCH ×2 (12:17→20:39)
[2019-10-25 14:43] LABS: Appearance,Urine Clear (Clear); Bilirubin,Urine Negative (Negative); Blood,Urine Negative (Negative); Color,Urine Light Yellow; Glucose,Urine (UA) Negative (Negative); Ketones,Urine Negative (Negative); Leukocyte Esterase,Urine Negative (Negative); Nitrite,Urine Negative (Negative); Protein,Urine Negative (Negative); Specific Gravity,Urine 1.005 (1.001-1.035); Urobilinogen,Urine <2.0 mg/dL (<2.0)
--- NOTE | 2019-10-25 23:02 | P.PN ---
Progress Note - Text Progress Note Date: 10/25/19 Chief Complaint: Short of breath History of presenting complaint: This is a [address] England. Has noticed perspective for last 2 days increasingly short of breath. Slight slight dry cough. No fever no chills. Also felt his heart racing. In the doctor's office was sent in for a possible SVT. ER determined to be in atrial flutter put on a Cardizem drip. Also 25 mg Lopressor was given. No fever no chills. It seems as an outpatient. Had some uncontrolled blood pressure and his family doctor's been kind of control the same. He is to see Dr. Wise in the cardiology office. Did have a negative nuclear stress test back in March. This evening patient converted to sinus rhythm. After an hour or receiving by mouth Lopressor 50 mg. Patient is still short of breath. admitted with A. fib with rapid ventricular rate. Corrected to sinus rhythm. Acute pulmonary edema responded IV Lasix. Today-feeling a bit better. Tired. On IV Lasix. Blood pressure medications were adjusted. at the bedside. Has remained in sinus rhythm. Review of systems: Was done for constitutional, cardiovascular, GI, pulmonary. relevant finding as above Active Medications Albuterol Sulfate (Ventolin Nebulized) 2.5 mg INHALATION RT-QID PRN PRN Reason: Shortness Of Breath Last Admin: 10/25/19 20:17 Dose: 2.5 mg Documented by: Allopurinol (Zyloprim) 300 mg PO DAILY PRN PRN Reason: GOUT Apixaban (Eliquis) 5 mg PO BID [facility] Last Admin: 10/25/19 20:39 Dose: 5 mg Documented by: Furosemide (Lasix) 40 mg IV Q12HR [facility] Last Admin: 10/25/19 20:39 Dose: 40 mg Documented by: Heparin Sodium (Porcine) (Heparin) 0 unit IV PER PROTOCOL PRN; Protocol PRN Reason: Low PTT Last Admin: 10/25/19 04:17 Dose: 4,000 unit Documented by: Hydralazine HCl (Apresoline) 100 mg PO TID [facility] Last Admin: 10/25/19 20:39 Dose: 100 mg Documented by: Losartan Potassium (Cozaar) 100 mg PO DAILY [facility] Metoprolol Tartrate (Lopressor) 50 mg PO BID [facility] Last Admin: 10/25/19 20:39 Dose: 50 mg Documented by: Nitroglycerin (Nitrostat) 0.4 mg SUBLINGUAL Q5M PRN PRN Reason: Chest Pain Physical examination: VITAL SIGNS: 97.9, 95, 16, 153 bun 99, 95% on 2 L GENERAL: sitting of the edge of the bed, breathing better EYES: Pupils equal. Conjunctiva normal. HEENT: External appearance of nose and ears normal, oral cavity grossly normal. NECK: JVD not raised; masses not palpable. HEART: First and second heart sounds are normal; no edema. LUNGS: Respiratory rate increased; fair entry. ABDOMEN: Soft, nontender, liver spleen not palpable, no masses palpable. PSYCH: Alert and oriented x3; mood and affect normal. INVESTIGATIONS, reviewed in the clinical context: Potassium 4 creatinine 1.8 to UA negative proBNP 2900 LDL 115 Previous testing EKG tracing personally reviewed by me-atrial flutter with 2: 1 conduction. Ventricular rate of 150 Chest x-ray film personally reviewed by me-cardiomegaly, prominent pulmonary artery White count 40.7 hemoglobin 14 potassium 4.5 creatinine 1.65 Troponin I 0.052, 0.056, 0.057 Urine drug screen negative Assessment: -New onset of atrial flutter with a rapid ventricular rate, symptomatic symptoms present for over 2 days. Was put on IV Cardizem in the ER and started on Lopre ssor. converted back to sinus rhythm. 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 Started on eliquis pericardial she. On IV Lasix 40 mg every 12. Care was discussed the patient and at the bedside. Follow with cardiology and nephrology.
[2019-10-26] MEDS ORDERED: NIFEdipine XL 90 MG TAB.ER.24 PO ONE (00:30)
[2019-10-26] MEDS: hydrALAZINE HCL 50 MG TAB PO SCH ×3 (09:00→20:12)
[2019-10-26] MEDS: METOPROLOL TARTRATE 50 MG TAB PO SCH ×2 (09:00→20:19)
[2019-10-26] MEDS: LOSARTAN 50 MG TAB PO SCH (09:00)
[2019-10-26] MEDS: FUROSEMIDE 10 MG/ML 4 ML VIAL IV SCH (09:00)
[2019-10-26] MEDS: APIXABAN 5 MG TAB PO SCH ×2 (09:00→20:19)
[2019-10-26] MEDS: ALBUTEROL NEBULIZED 2.5 MG/3 ML INHALATION PRN ×2 (11:27→19:35)
--- NOTE | 2019-10-26 11:46 | P.PN ---
Subjective Progress Note Date: 10/26/19 CHIEF COMPLAINT: A flutter with RVR HISTORY OF PRESENT ILLNESS: Patient examined this morning time. Patient states he is feeling significantly better today. He reports feeling a little short of breath this morning when he was laying flat but currently denies shortness of breath. He denies chest pain or pressure. He was evaluated by nephrology yesterday and placed on IV Lasix. Creatinine 1.82 today, up from 1.65 yesterday. PHYSICAL EXAM: VITAL SIGNS: Reviewed. GENERAL: Well-developed in no acute distress. HEENT: Head is normocephalic. Pupils are equal, round. Sclerae anicteric. Mucous membranes of the mouth are moist. Neck supple. No JVD or thyromegaly LUNGS: Respirations even and unlabored. Lungs essentially clear to auscultation. HEART: Regular rate and rhythm. S1 and S2 heard. ABDOMEN: Soft. Nontender. EXTREMITIES: Normal range of motion. No clubbing or cyanosis. Peripheral pulses intact. No lower extremity edema NEUROLOGIC: Awake and alert. Oriented x 3. ASSESSMENT: New-onset paroxysmal atrial flutter with RVR, now maintaining SR Elevated troponins, secondary to above Hypertension Hyperlipidemia Chronic kidney disease, baseline unknown Upper respiratory infection Morbid obesity: BMI 40 2. PLAN: Continue current cardiac medications Continue Lasix per nephrology Monitor kidney function Monitor blood pressure 2-D echo ordered. Await results Nurse practitioner note has been reviewed by physician. Signing provider agrees with the documented findings, assessment, and plan of care. Objective - Vital Signs Vital signs: Vital Signs Temp 97.0 F L 10/26/19 08:56 Pulse 104 H 10/26/19 08:56 Resp 20 10/26/19 08:56 BP 138/79 10/26/19 08:56 Pulse Ox 93 L 10/26/19 08:56 Intake & Output 10/25/19 10/26/19 10/26/19 18:59 06:59 18:59 Intake Total 555 240 Output Total 1800 1500 Balance -1245 -1500 240 Weight 137.6 kg Intake: Oral 555 240 Output: Urine 1800 1500 Post Void Residual 0 Other: Voiding Method Toilet Toilet Toilet # Voids 2 - Labs CBC & Chem 7: 10/24/19 11:45 10/25/19 10:27 Labs: Abnormal Lab Results - Last 24 Hours (Table) 10/25/19 10/25/19 Range/Units 10:27 10:27 APTT 37.7 H (22.0-30.0) sec Sodium 136 L (137-145) mmol/L BUN 28 H (9-20) mg/dL Creatinine 1.82 H (0.66-1.25) mg/dL Glucose 117 H (74-99) mg/dL
--- NOTE | 2019-10-26 13:00 | ECHOF ---
Referral Reason:assess LV fn MEASUREMENTS -------- HEIGHT: 180.3 cm WEIGHT: 137.4 kg BP: 138/79 RVIDd: 4.0 cm (< 3.3) IVSd: 1.7 cm (0.6 - 1.1) LVIDd: 6.4 cm (3.9 - 5.3) LVPWd: 1.7 cm (0.6 - 1.1) IVSs: 2.2 cm LVIDs: 5.3 cm LVPWs: 2.4 cm LA Diam: 4.8 cm (2.7 - 3.8) LAESV Index (A-L): 39.28 ml/m Ao Diam: 3.1 cm (2.0 - 3.7) AV Cusp: 2.1 cm (1.5 - 2.6) MV EXCURSION: 18.134 mm (> 18.000) MV EF SLOPE: 71 mm/s (70 - 150) EPSS: 1.5 cm MV E Gio: 1.19 m/s MV DecT: 119 ms MV A Gio: 0.52 m/s MV E/A Ratio: 2.29 RAP: 15.00 mmHg RVSP: 38.48 mmHg FINDINGS -------- The left ventricle is moderately dilated. There is severe concentric left ventricular hypertrophy. Overall left ventricular systolic function is moderate-severely impaired with, an EF between 30 - 3 5 %. The right ventricle is moderately enlarged. LA is moderately dilated 34-39 ml/m2 The right atrium was not well visualized. 5.0mg of Lumason was utilized for enhancement of images Interatrial and interventricular septum intact. The aortic valve is trileaflet and appears structurally normal. Mild mitral annular calcification present. Mild mitral regurgitation is present. Mild tricuspid regurgitation present. There is mild pulmonary hypertension. The right ventricular systolic pressure, as measured by Doppler, is 38.48mmHg. The pulmonic valve was not well visualized. The aortic root size is normal. The inferior vena cava is dilated with poor inspiratory collapse which is consistent with estimated r ight atrial pressure of 15 mmHg. There is no pericardial effusion. CONCLUSIONS -------- 1. The left ventricle is moderately dilated. 2. There is severe concentric left ventricular hypertrophy. 3. Overall left ventricular systolic function is moderate-severely impaired with, an EF between 30 - 35 %. 4. The right ventricle is moderately enlarged. 5. LA is moderately dilated 34-39 ml/m2 6. 5.0mg of Lumason was utilized for enhancement of images 7. Mild mitral annular calcification present. 8. Mild mitral regurgitation is present. 9. Mild tricuspid regurgitation present. 10. There is mild pulmonary hypertension. 11. The right ventricular systolic pressure, as measured by Doppler, is 38.48mmHg. 12. The inferior vena cava is dilated with poor inspiratory collapse which is consistent with estimat ed right atrial pressure of 15 mmHg. 13. There is no pericardial effusion. NUMERICAL CONTROL OPERATOR: Nikole Nobles RDCS
--- NOTE | 2019-10-26 13:11 | P.PN ---
Subjective Progress Note Date: 10/26/19 Follow-up for acute kidney injury. Feels better today. No nausea vomiting diarrhea. Breathing improving. Overnight blood pressures were high and Procardia was given, blood pressures much better today. Objective - Vital Signs Vital signs: Vital Signs Temp 97.6 F 10/26/19 11:43 Pulse 93 10/26/19 11:43 Resp 20 10/26/19 08:56 BP 131/89 10/26/19 11:43 Pulse Ox 96 10/26/19 11:43 Intake & Output 10/25/19 10/26/19 10/26/19 18:59 06:59 18:59 Intake Total 555 240 Output Total 1800 1500 Balance -1245 -1500 240 Weight 137.6 kg Intake: Oral 555 240 Output: Urine 1800 1500 Post Void Residual 0 Other: Voiding Method Toilet Toilet Toilet # Voids 2 2 - Exam No acute distress S1-S2 heard Decreased breath sounds Abdomen distended Edema - Labs CBC & Chem 7: 10/24/19 11:45 10/25/19 10:27 Assessment and Plan Assessment: #1 acute kidney injury suspect hemodynamics with atrial fibrillation. #2 chronic kidney disease stage III secondary to long history of hypertension, baseline creatinine unknown. #3 hypertension uncontrolled #4 atrial fibrillation currently in sinus rhythm #5 metabolic acidosis secondary to chronic kidney disease #6 edema Plan: #1 slight creep in creatinine yesterday. Suspect hemodynamic change. #2 antihypertensive medications adjusted, continue with the current regimen at discharge. #3 change IV Lasix to by mouth Lasix. #4 urine analysis [place]. #5 avoid nephrotoxic agents and hypotensive episodes. #6 if renal function stable tomorrow can be discharged from nephrology point of view to be followed up in the clinic in 1-2 weeks.
[2019-10-26 13:47] LABS: Calcium 8.7 mg/dL (8.4-10.2); Potassium 3.7 mmol/L (3.5-5.1)
--- NOTE | 2019-10-26 14:28 | P.PN ---
Progress Note - Text Progress Note Date: 10/26/19 Chief Complaint: Short of breath History of presenting complaint: This is a [address] England. Has noticed perspective for last 2 days increasingly short of breath. Slight slight dry cough. No fever no chills. Also felt his heart racing. In the doctor's office was sent in for a possible SVT. ER determined to be in atrial flutter put on a Cardizem drip. Also 25 mg Lopressor was given. No fever no chills. It seems as an outpatient. Had some uncontrolled blood pressure and his family doctor's been kind of control the same. He is to see Dr. Wise in the cardiology office. Did have a negative nuclear stress test back in March. This evening patient converted to sinus rhythm. After an hour or receiving by mouth Lopressor 50 mg. Patient is still short of breath. admitted with A. flutter-fib with rapid ventricular rate. Corrected to sinus r hythm. Acute pulmonary edema responded IV Lasix. Today-breathing better. Remains in sinus rhythm. Minimal edema. Preliminary results show low EF. at the bedside. Review of systems: Was done for constitutional, cardiovascular, GI, pulmonary. relevant finding as above Active Medications Albuterol Sulfate (Ventolin Nebulized) 2.5 mg INHALATION RT-QID PRN PRN Reason: Shortness Of Breath Last Admin: 10/26/19 11:27 Dose: 2.5 mg Documented by: Allopurinol (Zyloprim) 300 mg PO DAILY PRN PRN Reason: GOUT Apixaban (Eliquis) 5 mg PO BID [facility] Last Admin: 10/26/19 09:00 Dose: 5 mg Documented by: Furosemide (Lasix) 40 mg PO BID@0900,1600 [facility] Hydralazine HCl (Apresoline) 100 mg PO TID [facility] Last Admin: 10/26/19 09:00 Dose: 100 mg Documented by: Losartan Potassium (Cozaar) 100 mg PO DAILY [facility] Last Admin: 10/26/19 09:00 Dose: 100 mg Documented by: Metoprolol Tartrate (Lopressor) 50 mg PO BID [facility] Last Admin: 10/26/19 09:00 Dose: 50 mg Documented by: Nifedipine (Procardia Xl) 90 mg PO DAILY [facility] Nitroglycerin (Nitrostat) 0.4 mg SUBLINGUAL Q5M PRN PRN Reason: Chest Pain Physical examination: VITAL SIGNS: 97.6, 93,'s 16, 131/89, 96% on 2 L GENERAL: sitting of the edge of the bed, breathing comfortable EYES: Pupils equal. Conjunctiva normal. HEENT: External appearance of nose and ears normal, oral cavity grossly normal. NECK: JVD not raised; masses not palpable. HEART: First and second heart sounds are normal; no edema. LUNGS: Respiratory rate normal; fair entry. ABDOMEN: Soft, nontender, liver spleen not palpable, no masses palpable. PSYCH: Alert and oriented x3; mood and affect normal. INVESTIGATIONS, reviewed in the clinical context: Potassium 3.7 creatinine 1.5 for 2-D echocardiogram-severe concentric LVH, EF 30-35% Previous testing EKG tracing personally reviewed by me-atrial flutter with 2: 1 conduction. Ventricular rate of 150 Chest x-ray film personally reviewed by me-cardiomegaly, prominent pulmonary artery White count 40.7 hemoglobin 14 potassium 4.5 creatinine 1.65 Troponin I 0.052, 0.056, 0.057 Urine drug screen negative LDL 115 UA negative Assessment: -Paroxysmal atrial flutter with a rapid ventricular rate, symptomatic symptoms present for over 2 days. Was put on IV Cardizem in the ER and started on Lopressor. converted back to sinus rhythm. 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 Started on eliquis. Cardiology is considering cardiac catheterization.
[2019-10-26] MEDS: FUROSEMIDE 40 MG TAB PO SCH (15:50)
--- NOTE | 2019-10-27 00:40 | PN ---
PROGRESS NOTE The patient is admitted to hospital with atrial flutter and uncontrolled hypertension and has underlying renal insufficiency. Patient had an echocardiogram this morning that shows LV systolic dysfunction with an ejection fraction of 35%. He told me that he was evaluated by Dr. Varela in the office. Apparently he had a stress test and was told everything looks normal. We need to review his office records and decide on how to pursue this LV systolic dysfunction. If it is new, he may need a cardiac catheterization are a stress test and we will address this issue tomorrow once we have office records with us. In the meantime, he will continue the Eliquis, Cozaar, Procardia, Lopressor and Apresoline and have optimal control of his blood pressure. MMODL / IJN: [id number] /
[2019-10-27] MEDS: METOPROLOL TARTRATE 50 MG TAB PO SCH ×2 (07:51→21:11)
[2019-10-27] MEDS: APIXABAN 5 MG TAB PO SCH ×3 (07:52→21:11)
[2019-10-27] MEDS: NIFEdipine XL 90 MG TAB.ER.24 PO SCH (07:52)
[2019-10-27] MEDS: hydrALAZINE HCL 50 MG TAB PO SCH ×3 (07:52→21:10)
[2019-10-27] MEDS: FUROSEMIDE 40 MG TAB PO SCH ×2 (07:52→15:50)
[2019-10-27] MEDS: LOSARTAN 50 MG TAB PO SCH (07:52)
[2019-10-27 08:30] LABS: Calcium 8.9 mg/dL (8.4-10.2); Potassium 3.8 mmol/L (3.5-5.1)
--- NOTE | 2019-10-27 10:11 | P.PN ---
Subjective Patient is admitted for shortness of breath and A. fib and acute renal failure. Patient will not will undergo cardioversion for atrial fibrillation patient is still bit short of breath secondary to A. fib patient had a decreased EF of around 30-30%. Constitutional: Denied any fatigue denied any fever. Cardio vascular: denied any chest pain, palpitations Gastrointestinal denied any nausea vomiting Pulmonary: Still has shortness of breath Neurologic denied any new focal deficits All inpatient medications were reviewed and appropriate changes in these medications as dictated in the interval history and assessment and plan. Objective - Vital Signs Vital signs: Vital Signs Temp 98.5 F 10/27/19 04:00 Pulse 74 10/27/19 04:00 Resp 18 10/27/19 04:00 BP 150/78 10/27/19 04:00 Pulse Ox 93 L 10/27/19 04:00 Intake & Output 10/26/19 10/27/19 10/27/19 18:59 06:59 18:59 Intake Total 2015 240 Output Total 1600 1100 Balance 416 -1100 240 Weight 135.6 kg Intake: Oral 2015 Output: Urine 1600 1100 Other: Voiding Method Toilet Toilet # Voids 2 1 - Exam PHYSICAL EXAMINATION: GENERAL: The patient is alert and oriented x3, not in any acute distress. Well developed, well nourished. HEENT: Pupils are round and equally reacting to light. EOMI. No scleral icterus. No conjunctival pallor. Normocephalic, atraumatic. No pharyngeal erythema. No thyromegaly. CARDIOVASCULAR: S1 and S2 present. No murmurs, rubs, or gallops. Irregularly irregular rhythm PULMONARY: Chest is clear to auscultation, no wheezing or crackles. ABDOMEN: Soft, nontender, nondistended, normoactive bowel sounds. No palpable organomegaly. MUSCULOSKELETAL: No joint swelling or deformity. EXTREMITIES: No cyanosis, clubbing, or pedal edema. NEUROLOGICAL: Gross neurological examination did not reveal any focal deficits. SKIN: No rashes. - Labs CBC & Chem 7: 10/24/19 11:45 10/27/19 07:27 Labs: Abnormal Lab Results - Last 24 Hours (Table) 10/26/19 10/27/19 Range/Units 13:01 07:27 BUN 23 H (9-20) mg/dL Creatinine 1.54 H 1.38 H (0.66-1.25) mg/dL Glucose 113 H (74-99) mg/dL Assessment and Plan Plan: -Paroxysmal atrial flutter with a rapid ventricular rate, symptomatic , patient will undergo coronary vision today patient is in metoprolol, patient is on Eliquis -Acute congestive heart failure exacerbation from combined diastolic and systoli c dysfunction EF 30-35%, POA with minimal exacerbation patient is presently failure euvolemic -Acute renal failure: Secondary to renal azotemia from heart failure and A. fib -Troponin leak likely in the setting of chronic kidney disease -Chronic kidney disease stage III likely from nephrosclerosis -Morbid obesity BMI 42.7 -Obstructive sleep apnea uses CPAP -Hypertension -Intermittent asthma controlled
[2019-10-27] MEDS ORDERED: METOPROLOL TARTRATE 50 MG TAB PO STA (10:16)
--- NOTE | 2019-10-27 11:06 | P.PN ---
Subjective Patient is seen in follow-up for acute kidney injury. Renal function improving. Maintain on oral Lasix. Good urine output. No chest pain or shortness of breath. Vital signs are stable. General: The patient appeared well nourished and normally developed. HEENT: Head exam is unremarkable. Neck is without jugular venous distension. LUNGS: Lungs are clear to auscultation and percussion. Breath sounds decreased. HEART: Rate and Rhythm are regular. ABDOMEN: Soft, nontender. EXTREMITITES: Trace edema. Objective - Vital Signs Vital signs: Vital Signs Temp 98.6 F 10/27/19 07:50 Pulse 168 H 10/27/19 07:50 Resp 20 10/27/19 07:50 BP 144/82 10/27/19 07:50 Pulse Ox 96 10/27/19 07:50 Intake & Output 10/26/19 10/27/19 10/27/19 18:59 06:59 18:59 Intake Total 2015 240 Output Total 1600 1100 Balance 416 -1100 240 Weight 135.6 kg Intake: Oral 2015 240 Output: Urine 1600 1100 Other: Voiding Method Toilet Toilet Toilet # Voids 2 1 - Labs CBC & Chem 7: 10/24/19 11:45 10/27/19 07:27 Labs: Abnormal Lab Results - Last 24 Hours (Table) 10/26/19 10/27/19 Range/Units 13:01 07:27 BUN 23 H (9-20) mg/dL Creatinine 1.54 H 1.38 H (0.66-1.25) mg/dL Glucose 113 H (74-99) mg/dL Assessment and Plan Plan: Assessment: 1. Acute kidney injury mostly prerenal secondary to cardiorenal syndrome. Creatinine 1.38 today. UA benign. 2. Acute on chronic systolic CHF with ejection fraction of 30-35%. 3. Volume overload. 4. A. fib maintained on anticoagulation. 5. Benign hypertension. Stable. 6. Rule out chronic kidney disease. Plan: Maintain Lasix 40 mg orally twice daily. Low-salt diet. Advised them to maintain fluid restriction of 40 ounces per day. Also advised them to weigh himself daily at home and to call if gains more than 3-4 pounds or has worsening edema. Continue to monitor renal function and urine output.
[2019-10-27] MEDS ORDERED: METOPROLOL TARTRATE 50 MG TAB PO SCH (16:00)
--- NOTE | 2019-10-27 17:42 | P.PN ---
Subjective Patient was in sinus rhythm yesterday. Today he is in an atrial tachycardia that is consistent with atrial flutter with RVR. Rates are very difficult to control. His rates are 300 5255 beats a minute despite metoprolol 50 mg twice daily. He was started on heparin upon admission and then ELIQUIS since admission 5 mg twice daily He denies any chest discomfort but he just feels the palpitations. No dizziness lightheadedness He has had hypertension which has been very difficult to control. He is currently on nifedipine long-acting 90 mg daily, losartan 100 mg daily and hydralazine 100 mg 3 times a day and he is also on Lasix 40 mg twice daily He has obstructive sleep apnea and uses CPAP mask regularly His BMI is 41.7 On examination blood pressure 1906 2 mmHg, 140/71 mmHg, pulse rate initially was in the 150s and later with high dose of beta blockers is between 90-100 beats a minute afebrile 98.3F Breath sounds are clear Heart sounds are tachycardic No lower extremity edema Abdomen soft Impression Atrial tachycardia , typical atrial flutter with RVR anticoagulated on ELIQUIS for the last 3 days Rate controlled difficult Recurrent typical atrial flutter with RVR Uncontrolled hypertension Obstructive sleep apnea Stress test earlier this year was normal LV function is normal in the office Here in the hospital his LV function is reduced, most likely during atrial flutter Suggest Add a detailed discussion with the patient regarding management of atrial flutter. I would recommend proceeding with an atrial flutter ablation with intracardiac echo to rule out intracardiac mass/thrombus and then proceed with a flutter ablation with intracardiac echo guidance I discussed the future risk of atrial fibrillation and the importance of blood pressure control and sleep apnea management as well as weight reduction I'll proceed with an atrial flutter ablation tomorrow. Patient is agreeable to the plan Objective - Vital Signs Vital signs: Vital Signs Temp 98.3 F 10/27/19 15:58 Pulse 89 10/27/19 16:12 Resp 16 10/27/19 16:12 BP 140/71 10/27/19 15:58 Pulse Ox 95 10/27/19 15:58 Intake & Output 10/26/19 10/27/19 10/27/19 18:59 06:59 18:59 Intake Total 2015 1440 Output Total 1600 1100 Balance 416 -1100 1440 Weight 135.6 kg Intake: Oral 2015 1440 Output: Urine 1600 1100 Other: Voiding Method Toilet Toilet Toilet # Voids 2 1 3 - Labs CBC & Chem 7: 10/24/19 11:45 10/27/19 07:27 Labs: Abnormal Lab Results - Last 24 Hours (Table) 10/27/19 Range/Units 07:27 Creatinine 1.38 H (0.66-1.25) mg/dL
[2019-10-27] MEDS ORDERED: LACTATED RINGERS 1,000 ML IV SCH (20:15)
[2019-10-28] MEDS: FUROSEMIDE 40 MG TAB PO SCH ×2 (03:44→16:29)
[2019-10-28] MEDS: METOPROLOL TARTRATE 50 MG TAB PO SCH (04:46)
[2019-10-28] MEDS ORDERED: APIXABAN 5 MG TAB PO ONE (06:00)
[2019-10-28] MEDS: hydrALAZINE HCL 50 MG TAB PO SCH ×3 (06:03→22:06)
[2019-10-28] MEDS: NIFEdipine XL 90 MG TAB.ER.24 PO SCH (06:03)
[2019-10-28] MEDS: LOSARTAN 50 MG TAB PO SCH (06:03)
[2019-10-28 06:23] LABS: Glucose,Whole Blood 87 mg/dL (75-99)
[2019-10-28 07:04] LABS: Magnesium 2.1 mg/dL (1.6-2.3); Potassium 4.4 mmol/L (3.5-5.1)
[2019-10-28] MEDS ORDERED: IV FLUID CONTINUATION 1,000 ML IV ONE (08:10)
[2019-10-28] MEDS ORDERED: SODIUM CHLORIDE 0.9% 1,000 ML IV ONE (08:10)
[2019-10-28] MEDS ORDERED: LIDOCAINE 1% INJ 10MG/ML (20 ML MDV) ONE ×2 (08:11→08:26)
[2019-10-28] MEDS ORDERED: ISOPROTERENOL 250 MCG/1.25 ML SYR IV ONE (08:26)
[2019-10-28] MEDS ORDERED: HYDROmorphone (PF) 1 MG/ML ONE (08:26)
[2019-10-28] MEDS ORDERED: PROPOFOL 10 MG/ML 20 ML VIAL IV ONE (08:26)
[2019-10-28] MEDS ORDERED: NEOSTIGMINE 1 MG/ML 10 ML VIAL ONE (08:26)
[2019-10-28] MEDS ORDERED: MIDAZOLAM 2 MG/2 ML VIAL ONE (08:26)
[2019-10-28] MEDS ORDERED: SUCCINYLCHOLINE CHLORIDE VIAL 200 MG/10 ML VIAL IV ONE (08:26)
[2019-10-28] MEDS ORDERED: PHENYLEPHRINE-0.9% NACL SYG 1 MG/10 ML SYRINGE ONE (08:26)
[2019-10-28] MEDS ORDERED: ePHEDrine SULFATE/0.9% NACL/PF 50 MG/5 ML SYRINGE IV ONE (08:26)
[2019-10-28] MEDS ORDERED: fentaNYL (PF) 50 MCG/ML 2 ML AMP ONE (08:26)
[2019-10-28] MEDS ORDERED: GLYCOPYRROLATE 0.2 MG/ML 2 ML VIAL ONE (08:26)
[2019-10-28] MEDS ORDERED: ROCURONIUM BROMIDE 10 MG/ML 5 ML VIAL IV ONE (08:26)
[2019-10-28] MEDS ORDERED: LIDOCAINE 1% INJ 10MG/ML (20 ML MDV) SQ ONE (09:00)
[2019-10-28] MEDS ORDERED: HEPARIN SODIUM (1,000 UNIT/ML) 1,000 UNIT in SODIUM CHLORIDE 0.9% 1,000 ML IRRIGATION ONE (09:15)
--- NOTE | 2019-10-28 10:25 | P.PN ---
Subjective Patient is admitted for shortness of breath and A. fib and acute renal failure. Patient will not will undergo cardioversion for atrial fibrillation patient is still bit short of breath secondary to A. fib patient had a decreased EF of around 30-30%. 10/28/2019 Patient is going for ablation today. Constitutional: Denied any fatigue denied any fever. Cardio vascular: denied any chest pain, palpitations Gastrointestinal denied any nausea vomiting Pulmonary: Still has shortness of breath Neurologic denied any new focal deficits All inpatient medications were reviewed and appropriate changes in these medications as dictated in the interval history and assessment and plan. Objective - Vital Signs Vital signs: Vital Signs Temp 98.1 F 10/28/19 04:00 Pulse 93 10/28/19 04:00 Resp 17 10/28/19 04:00 BP 193/96 10/28/19 04:00 Pulse Ox 98 10/28/19 04:00 Intake & Output 10/27/19 10/28/19 10/28/19 18:59 06:59 18:59 Intake Total 1680 0 Output Total 1500 400 Balance 1680 -1500 -400 Weight 135.8 kg Intake: Oral 1680 0 Output: Urine 1500 400 Other: Voiding Method Toilet Toilet # Voids 3 1 - Exam PHYSICAL EXAMINATION: GENERAL: The patient is alert and oriented x3, not in any acute distress. Well developed, well nourished. HEENT: Pupils are round and equally reacting to light. EOMI. No scleral icterus. No conjunctival pallor. Normocephalic, atraumatic. No pharyngeal erythema. No thyromegaly. CARDIOVASCULAR: S1 and S2 present. No murmurs, rubs, or gallops. Irregularly irregular rhythm PULMONARY: Chest is clear to auscultation, no wheezing or crackles. ABDOMEN: Soft, nontender, nondistended, normoactive bowel sounds. No palpable organomegaly. MUSCULOSKELETAL: No joint swelling or deformity. EXTREMITIES: No cyanosis, clubbing, or pedal edema. NEUROLOGICAL: Gross neurological examination did not reveal any focal deficits. SKIN: No rashes. - Labs CBC & Chem 7: 10/24/19 11:45 10/28/19 06:25 Labs: Abnormal Lab Results - Last 24 Hours (Table) 10/28/19 Range/Units 06:25 Chloride 94 L (98-107) mmol/L BUN 22 H (9-20) mg/dL Creatinine 1.51 H (0.66-1.25) mg/dL Assessment and Plan Plan: -Paroxysmal atrial flutter with a rapid ventricular rate, symptomatic , patient is going for ablation today today patient is in metoprolol, patient is on Eliquis -Acute congestive heart failure exacerbation from combined diastolic and systolic dysfunction EF 30-35%, POA with minimal exacerbation patient is presently failure euvolemic -Acute renal failure: Secondary to renal azotemia from heart failure and A. fib -Troponin leak likely in the setting of chronic kidney disease -Chronic kidney disease stage III likely from nephrosclerosis -Morbid obesity BMI 42.7 -Obstructive sleep apnea uses CPAP -Hypertension -Intermittent asthma controlled
[2019-10-28] MEDS ORDERED: HYDROcodone/APAP 5-325MG 1 EACH TAB PO PRN (10:47)
[2019-10-28] MEDS ORDERED: ACETAMINOPHEN TAB 325 MG TAB PO PRN (10:47)
--- NOTE | 2019-10-28 10:52 | P.PN ---
Progress Note - Text Procedure Diagnostic EP study, radiofrequency ablation for typical atrial flutter Indication Recurrent typical atrial flutter with RVR refractory to therapy Result Successful refractory disease ablation for cavo tricuspid atrial flutter with bidirectional block Very long right atrial isthmus of about 4.7 cm Left ventricular hypertrophy with reduced LV systolic function on intracardiac echo Plan Lifelong anticoagulation with apixaban Hypertension management Elevated LDL start statins Switched to metoprolol succinate 100 mg by mouth daily At discharge switched to valsartan 360 mg by mouth daily Continue Procardia XL 90 mg by mouth daily
[2019-10-28] MEDS ORDERED: FUROSEMIDE 10 MG/ML 4 ML VIAL ONE (10:59)
[2019-10-28] MEDS ORDERED: FUROSEMIDE 10 MG/ML 4 ML VIAL IV ONE (11:02)
[2019-10-28] MEDS: ACETAMINOPHEN IV (For NPO) 1,000 MG in EMPTY BAG 1 BAG IVPB ONE ×2 (11:45→12:00)
[2019-10-28] MEDS: METOPROLOL SUCCINATE (ER) 100 MG TAB.ER.24H PO SCH (13:13)
[2019-10-28] MEDS ORDERED: ATORVASTATIN 20 MG TAB PO SCH (21:00)
[2019-10-28] MEDS: APIXABAN 5 MG TAB PO SCH (22:06)
[2019-10-29 07:02] LABS: Calcium 8.6 mg/dL (8.4-10.2); Magnesium 2.1 mg/dL (1.6-2.3)
[2019-10-29 07:09] LABS: Potassium 4.7 mmol/L (3.5-5.1)
[2019-10-29] MEDS: LOSARTAN 50 MG TAB PO SCH (09:14)
[2019-10-29] MEDS: hydrALAZINE HCL 50 MG TAB PO SCH (09:14)
[2019-10-29] MEDS: APIXABAN 5 MG TAB PO SCH (09:14)
[2019-10-29] MEDS: METOPROLOL SUCCINATE (ER) 100 MG TAB.ER.24H PO SCH (09:14)
[2019-10-29] MEDS: FUROSEMIDE 40 MG TAB PO SCH (09:14)
[2019-10-29] MEDS: NIFEdipine XL 90 MG TAB.ER.24 PO SCH (09:14)
--- NOTE | 2019-10-29 09:38 | P.PN ---
Subjective Patient is seen in follow-up for acute kidney injury. Renal function stable. Maintain on oral Lasix. Good urine output. No chest pain or shortness of breath. blood pressure controlled. Vital signs are stable. General: The patient appeared well nourished and normally developed. HEENT: Head exam is unremarkable. Neck is without jugular venous distension. LUNGS: Lungs are clear to auscultation and percussion. Breath sounds decreased. HEART: Rate and Rhythm are regular. ABDOMEN: Soft, nontender. EXTREMITITES: Trace edema. Objective - Vital Signs Vital signs: Vital Signs Temp 98.4 F 10/29/19 07:40 Pulse 96 10/29/19 07:40 Resp 22 10/29/19 07:40 BP 136/83 10/29/19 07:40 Pulse Ox 98 10/29/19 07:40 Intake & Output 10/28/19 10/29/19 10/29/19 18:59 06:59 18:59 Intake Total 2235 480 780 Output Total 1350 1700 1300 Balance 885 -1220 -520 Weight 135.8 kg Intake: IV 1455 Oral 780 480 780 Output: Urine 1350 1700 1300 Other: Voiding Method Indwelling Catheter Indwelling Catheter # Voids 1 - Labs CBC & Chem 7: 10/24/19 11:45 10/29/19 06:15 Labs: Abnormal Lab Results - Last 24 Hours (Table) 10/29/19 Range/Units 06:15 BUN 23 H (9-20) mg/dL Creatinine 1.55 H (0.66-1.25) mg/dL Assessment and Plan Plan: Assessment: 1. Acute kidney injury mostly prerenal secondary to cardiorenal syndrome. Creatinine 1.55 today. UA benign. 2. Acute on chronic systolic CHF with ejection fraction of 30-35%. 3. Volume overload. 4. A. fib maintained on anticoagulation. status post ablation October 27. 5. Benign hypertension. Stable. 6. Rule out chronic kidney disease. Plan: Maintain Lasix 40 mg orally twice daily. Low-salt diet. Advised them to maintain fluid restriction of 40 ounces per day. Also advised them to weigh himself daily at home and to call if gains more than 3-4 pounds or has worsening edema. Continue to monitor renal function and urine output. repeat BMP and magnesium level 2-3 days postdischarge. Follow up outpatient in 7-10 days.
--- NOTE | 2019-10-29 10:39 | P.DS ---
Providers Date of admission: 10/24/19 13:05 Attending physician: Kurt Link Consults: 10/24/19 13:05 Consult Physician Urgent Consulting Provider: [facility] Consult Reason/Comments: Atrial flutter with rapid ventricular response, elevated troponin Do you want consulting provider notified?: Yes 10/24/19 21:51 Consult Physician Routine Consulting Provider: Luis Alvarado Consult Reason/Comments: renal failure Do you want consulting provider notified?: Yes Primary care physician: Geronimo England Hospital Course: Patient is admitted for shortness of breath and A. fib and acute renal failure. Patient will not will undergo cardioversion for atrial fibrillation patient is still bit short of breath secondary to A. fib patient had a decreased EF of around 30-30%. 10/28/2019 Patient is going for ablation today. 10/29/2019 Patient is not in heart failure exacerbation at this time patient had an aberration after which patient is sinus rhythm. PHYSICAL EXAMINATION: GENERAL: The patient is alert and oriented x3, not in any acute distress. Obese HEENT: Pupils are round and equally reacting to light. EOMI. No scleral icterus. No conjunctival pallor. Normocephalic, atraumatic. No pharyngeal erythema. No thyromegaly. CARDIOVASCULAR: S1 and S2 present. No murmurs, rubs, or gallops. PULMONARY: Chest is clear to auscultation, no wheezing or crackles. ABDOMEN: Soft, nontender, nondistended, normoactive bowel sounds. No palpable organomegaly. MUSCULOSKELETAL: No joint swelling or deformity. EXTREMITIES: No cyanosis, clubbing, or pedal edema. NEUROLOGICAL: Gross neurological examination did not reveal any focal deficits. SKIN: No rashes. Assessment and Plan Plan: -Paroxysmal atrial flutter with a rapid ventricular rate, symptomatic , patient is in metoprolol, patient is on Eliquis. Patient's symptoms improved patient is sinus rhythm patient is a status post ablation -Acute congestive heart failure exacerbation from combined diastolic and systolic dysfunction EF 30-35%, POA with minimal exacerbation patient is presently failure euvolemic -Acute renal failure: Secondary to renal azotemia from heart failure and A. fib -Troponin leak likely in the setting of chronic kidney disease -Chronic kidney disease stage III likely from nephrosclerosis -Morbid obesity BMI 42.7 -Obstructive sleep apnea uses CPAP -Hypertension -Intermittent asthma controlled Plan - Discharge Summary Discharge Rx Participant: Yes New Discharge Prescriptions: New Apixaban [Eliquis] 5 mg PO BID #30 tab Furosemide [Lasix] 40 mg PO BID@0900,1600 tab Atorvastatin [Lipitor] 20 mg PO HS #30 tab Nitroglycerin Sl Tabs [Nitrostat] 0.4 mg SUBLINGUAL Q5M PRN #30 tab PRN Reason: Chest Pain NIFEdipine XL [Procardia XL] 90 mg PO DAILY #30 tab.er.24 Metoprolol Succinate (ER) [Toprol XL] 100 mg PO DAILY #30 tab.er.24h Continue hydrALAZINE HCL [Apresoline] 100 mg PO TID allopurinoL [Zyloprim] 300 mg PO DAILY PRN PRN Reason: GOUT Telmisartan 80 mg PO DAILY Albuterol Inhaler [Ventolin Hfa Inhaler] 2 puff INHALATION RT-QID PRN PRN Reason: Shortness Of Breath Ubidecarenone [Co Q-10] 100 mg PO DAILY Discontinued Furosemide [Lasix] 40 mg PO DAILY PRN PRN Reason: Edema Labetalol HCl 200 mg PO DAILY Discharge Medication List Telmisartan 80 mg PO DAILY 04/27/19 [History] allopurinoL [Zyloprim] 300 mg PO DAILY PRN 04/27/19 [History] hydrALAZINE HCL [Apresoline] 100 mg PO TID 04/27/19 [History] Albuterol Inhaler [Ventolin Hfa Inhaler] 2 puff INHALATION RT-QID PRN 10/24/19 [History] Ubidecarenone [Co Q-10] 100 mg PO DAILY 10/24/19 [History] Apixaban [Eliquis] 5 mg PO BID #30 tab 10/29/19 [Rx] Atorvastatin [Lipitor] 20 mg PO HS #30 tab 10/29/19 [Rx] Furosemide [Lasix] 40 mg PO BID@0900,1600 tab 10/29/19 [Rx] Metoprolol Succinate (ER) [Toprol XL] 100 mg PO DAILY #30 tab.er.24h 10/29/19 [Rx] NIFEdipine XL [Procardia XL] 90 mg PO DAILY #30 tab.er.24 10/29/19 [Rx] Nitroglycerin Sl Tabs [Nitrostat] 0.4 mg SUBLINGUAL Q5M PRN #30 tab 10/29/19 [Rx] Follow up Appointment(s)/Referral(s): Varun Zimmer MD [STAFF PHYSICIAN] - 1 Week Geronimo England MD [Primary Care Provider] - 3 Days Luis Alvarado DO [STAFF PHYSICIAN] - 1 Week Ambulatory/Diagnostic Orders: Basic Metabolic Panel [LAB.AMB] Time Frame: 3 Days, Location: None Selected Magnesium [LAB.AMB] Time Frame: 3 Days, Location: None Selected Activity/Diet/Wound Care/Special Instructions: Patient has [employer] free coupon card and $10 copay card at bedside. Discharge Disposition: HOME SELF-CARE
[2019-10-29 12:15] VITALS: BP 131/85; RESP 21; TEMP 97.6
[2019-10-29 13:23] VITALS: PULSE 93
--- NOTE | 2019-10-29 17:23 | P.PN ---
Subjective Patient is doing well. His resting comfortably in bed. His groins of healed well. He has a minimal hematoma in the right groin for the arterial line. Left-sided no hematoma Heart sounds are normal no murmurs no gallops Breath sounds are clear no rhonchi no crackles No JVD 9 no lower extremity edema Abdomen is soft Blood pressure 131/85 mmHg pulse rate in the 80s afebrile 97.60 Fahrenheit Impression Severe uncontrolled hypertension, now better controlled medical treatment Typical atrial flutter with RVR with difficult rate control Left ventricular hypertrophy with reduced LV systolic function which is new After going back in normal rhythm the patient has realized he could be having palpitations for the last several months His 2-D echo and Doppler study showed preserved systolic function earlier in the year I discussed with Dr. Varela and we will do a follow-up echo in about 6 weeks to look at his LV function Weight reduction and sleep apnea assessment recommended Patient to go home from cardiac standpoint and follow with Dr. Wise in 1-2 weeks and he will continue ELIQUIS 5 mg twice daily along with nifedipine and metoprolol succinate 100 mg by mouth daily along with telmisartan He will follow-up with Dr. Wise in 1 week Objective - Vital Signs Vital signs: Vital Signs Temp 97.6 F 10/29/19 12:13 Pulse 89 10/29/19 12:13 Resp 21 10/29/19 12:13 BP 131/85 10/29/19 12:13 Pulse Ox 95 10/29/19 12:13 Intake & Output 10/28/19 10/29/19 10/29/19 18:59 06:59 18:59 Intake Total 2235 480 900 Output Total 1350 1700 1300 Balance 885 -1220 -400 Weight 135.8 kg Intake: IV 1455 Oral 780 480 900 Output: Urine 1350 1700 1300 Other: Voiding Method Indwelling Catheter Indwelling Catheter Indwelling Catheter # Voids 1 - Labs CBC & Chem 7: 10/24/19 11:45 10/29/19 06:15 Labs: Abnormal Lab Results - Last 24 Hours (Table) 10/29/19 Range/Units 06:15 BUN 23 H (9-20) mg/dL Creatinine 1.55 H (0.66-1.25) mg/dL
--- NOTE | 2019-11-02 18:53 | PCN ---
PROCEDURE NOTE Mr. Bruno Carrillo was admitted to the hospital with typical atrial flutter with RVR. He would go back and forth into it and is refractory to medical treatment. He would be at rates greater than 150 beats per minute despite AV alysha blocking drugs. He has also developed a cardiomyopathy since March of 2019. He is brought to the EP lab for an atrial flutter ablation. DESCRIPTION OF PROCEDURE: Patient was brought to the EP lab in a fasting state. Written informed consent was obtained prior to the procedure. The left shoulder area was prepped and draped as per protocol. 1% lidocaine used for local anesthesia. Venous sheaths were placed in the right and left femoral veins. An arterial line was placed in the right femoral artery. Diagnostic catheters were placed in the high right atrium, his bundle area RV and coronary sinus. Intracardiac echo catheter was placed. 3D electronic electroanatomic mapping of the right atrium was performed. The cava tricuspid isthmus was identified full. Anatomically, the cava tricuspid isthmus was very long 4.7 cm with a pouch in the middle bordered by a thick muscle trabecula. An irrigated tip catheter was used to perform RF ablation. A complete line of block was made from the tricuspid anulus to the IVC. Good contact force was used. 40 hayden of power was used. A complete line of block was made that was anatomically complete. Following that, with differential pacing, bidirectional block was proven. The patient was in tachycardia at the start of the study and the RF line resulted in termination of the tachycardia. Following that, the baseline measurements were as follows: The AH interval 163 milliseconds, QRS 112 milliseconds, QT 333 milliseconds, AH interval 71 milliseconds, HV interval 50 milliseconds. Sinus node recovery times at 500 milliseconds was 796 milliseconds. AV node Wenckebach block at 300 milliseconds, VA Wenckebach block 350 milliseconds. High-dose Isuprel was then used and atrial fibrillation could not be induced. Atrial flutter could not be induced despite burst stimulation. All catheters were then removed. The patient was transferred back to telemetry. Hemostasis was assured. RESULT: Successful atrial flutter ablation for drug refractory atrial flutter with RVR. PLAN: Maximize medical treatment. Maximize antihypertensive treatment and reassess LV function in 6 weeks to look for improvement in LV function. 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 LEE / ÁNGEL: [id number] /
== END 2019-10-29 13:34 | disposition home or self-care (01) | DRG 273 ==
LOC: EC 11:02 → 3SCARD 13:05
PROVIDERS: ADMIT Hospitalist; ATTEND Hospitalist
PROC: 4A023FZ Measurement of Cardiac Rhythm, Percutaneous Approach (ICD-10-PCS; principal; 2019-10-28 08:15)
PROC: 02K83ZZ Map Conduction Mechanism, Percutaneous Approach (ICD-10-PCS; principal; 2019-10-28 08:15)
PROC: 4A0234Z Measurement of Cardiac Electrical Activity, Percutaneous Approach (ICD-10-PCS; principal; 2019-10-28 08:15)
PROC: 02583ZZ Destruction of Conduction Mechanism, Percutaneous Approach (ICD-10-PCS; principal; 2019-10-28 08:15)
DX: I48.3 Typical atrial flutter (principal); I50.43 Acute on chronic combined systolic (congestive) and diastolic (congestive) heart failure; Z68.41 Body mass index [BMI] 40.0-44.9, adult; I13.0 Hypertensive heart and chronic kidney disease with heart failure and stage 1 through stage 4 chronic kidney disease, or unspecified chronic kidney disease; E87.2 Acidosis; N17.9 Acute kidney failure, unspecified; K21.9 Gastro-esophageal reflux disease without esophagitis; M10.9 Gout, unspecified; G47.33 Obstructive sleep apnea (adult) (pediatric); E78.5 Hyperlipidemia, unspecified; E66.01 Morbid (severe) obesity due to excess calories; J45.20 Mild intermittent asthma, uncomplicated; N18.3 Chronic kidney disease, stage 3 (moderate); I48.91 Unspecified atrial fibrillation; J06.9 Acute upper respiratory infection, unspecified; I16.0 Hypertensive urgency; Z79.01 Long term (current) use of anticoagulants; Z79.899 Other long term (current) drug therapy; Z91.013 Allergy to seafood; Z87.09 Personal history of other diseases of the respiratory system; Z98.890 Other specified postprocedural states
CPT/HCPCS: 36415; 71046; 80048; 80053; 80061; 80306; 81003; 83735; 83880; 84443; 84484; 85025; 85610; 85730; 93005; 93306; 93613; 93623; 93653; 93662; 94640; 96365; 96366; 96376; 99291

== ENCOUNTER → 2020-04-15 | Outpatient (CLI) | payer BC ==
[2020-04-15 18:24] LABS: African American GFR (CKD) 52.6 (60.0-200.0); Anion Gap 13.4 mmol/L (4.00-12.00); BUN/Creat Ratio 14.71 Ratio (12.00-20.00); Calcium 9.8 mg/dL (8.7-10.3); Carbon Dioxide 24.6 mmol/L (21.6-31.8); Non-African American GFR(CKD) 45.4 (60.0-200.0); Potassium 4.5 mmol/L (3.5-5.5)
== END | disposition home or self-care (01) ==
LOC: LABWHC1 09:23
PROVIDERS: ATTEND Internal Medicine Interventional Cardiology
DX: N18.9 Chronic kidney disease, unspecified (principal)
CPT/HCPCS: 36415; 80048

== ENCOUNTER → 2020-05-23 | Outpatient (CLI) | payer BC ==
--- NOTE | 2020-05-24 09:51 | US ---
EXAMINATION TYPE: US kidneys/renal and bladder DATE OF EXAM: 05/23/2020 COMPARISON: US CLINICAL HISTORY: N17.9 Acute Kidney injury. EXAM MEASUREMENTS: Right Kidney: 12.5 x 5.3 5.9 cm Left Kidney: 12.8 x 7.4 x 6.8 cm Post Void Residual Volume: 3.0 mL Right Kidney: small cortical cysts seen medially = 0.7 x 0.6 x 0.6cm Left Kidney: couple of cortical cysts seen with larger mid pole cyst = 4.2 x 2.6 x3.0cm. Bladder: minimally distended Bilateral Jets seen: yes Normal Post Void Residual: yes There is no evidence for hydronephrosis at this point in time. No nephrolithiasis is seen. The urin jayashree bladder is anechoic. Bilateral ureteral jets are seen. IMPRESSION: 1. Bilateral cortical renal cysts
== END | disposition home or self-care (01) ==
LOC: RADUSWWP 16:18
PROVIDERS: ATTEND Internal Medicine Nephrology
DX: N17.9 Acute kidney failure, unspecified (principal); N28.1 Cyst of kidney, acquired
CPT/HCPCS: 76770

== ENCOUNTER → 2021-04-25 | Outpatient (CLI) | payer BC ==
[2021-04-25 17:54] LABS: Basophils # (A) 0.05 X 10*3/uL (0.00-0.10); Basophils % (A) 0.8 %; Eosinophils # (A) 0.27 X 10*3/uL (0.04-0.35); Eosinophils % (A) 4.3 %; HCT 42.4 % (39.6-50.0); HGB 13.6 g/dL (13.0-17.0); Immature Grans, Automated 0.6 %; Lymphocytes # (A) 1.82 X 10*3/uL (0.90-5.00); Lymphocytes % (A) 28.7 %; MCH 31.9 pg (27.0-32.0); MCHC 32.1 g/dL (32.0-37.0); MCV 99.3 fL (80.0-97.0); Mean Platelet Volume 10.9 fL (9.5-12.2); Monocytes # (A) 0.57 X 10*3/uL (0.20-1.00); NRBC Per 100 WBC 0 /100 WBCS (0.0-0.0); Neutrophils % (A) 56.6 %; Platelet Count 241 X 10*3/uL (140-440); RBC 4.27 X 10*6/uL (4.40-5.60); RDW 13.3 % (11.5-14.5); WBC 6.35 X 10*3/uL (4.50-10.00)
[2021-04-25 18:11] LABS: ALT 45 U/L (10-49); AST 28 U/L (14-35); African American GFR (CKD) 42.9 (60.0-200.0); Albumin 4.7 g/dL (3.8-4.9); Albumin/Globulin Ratio 1.74 (1.60-3.17); Alkaline Phosphatase 64 U/L (41-126); Blood Urea Nitrogen 23.6 mg/dL (9.0-27.0); Calcium 9.9 mg/dL (8.7-10.3); Carbon Dioxide 23.9 mmol/L (20.0-27.5); Chloride 102 mmol/L (96-109); Chol/HDL Ratio 4.13 Ratio; Creatine Kinase 133 U/L (35-257); Globulin 2.7 g/dL (1.6-3.3); Glucose 110 mg/dL (70-110); LDL Cholesterol,Calculated 59.2 mg/dL (0.0-131.0); Potassium 4.4 mmol/L (3.5-5.5); Sodium 141 mmol/L (135-145); Total Protein 7.4 g/dL (6.2-8.2)
[2021-04-25 19:47] LABS: Folate, Serum >20.00 ng/mL (4.40-31.00)
== END | disposition home or self-care (01) ==
LOC: LABWHC1 11:31
PROVIDERS: ATTEND Family Medicine
DX: Z12.5 Encounter for screening for malignant neoplasm of prostate (principal); Z13.1 Encounter for screening for diabetes mellitus; N18.31 Chronic kidney disease, stage 3a; E78.00 Pure hypercholesterolemia, unspecified; R53.83 Other fatigue
CPT/HCPCS: 36415; 80053; 80061; 82550; 82607; 82728; 82746; 83036; 83970; 84100; 84153; 84403; 84439; 84443; 84481; 85025

== ENCOUNTER → 2021-05-29 | Outpatient (CLI) | payer BC ==
[2021-05-29 14:56] LABS: African American GFR (CKD) 56.2 (60.0-200.0); Albumin 4.8 g/dL (3.8-4.9); Anion Gap 11.3 mmol/L (10.00-18.00); BUN/Creat Ratio 16.63 Ratio (12.00-20.00); Blood Urea Nitrogen 26.6 mg/dL (9.0-27.0); Calcium 9.6 mg/dL (8.7-10.3); Carbon Dioxide 23.7 mmol/L (20.0-27.5); Non-African American GFR(CKD) 48.5 (60.0-200.0); Potassium 4.2 mmol/L (3.5-5.5)
== END | disposition home or self-care (01) ==
LOC: LABWHC1 08:03
PROVIDERS: ATTEND Family Medicine
DX: N18.32 Chronic kidney disease, stage 3b (principal)
CPT/HCPCS: 36415; 80069

== ENCOUNTER → 2022-05-23 | Outpatient (CLI) | payer BC ==
[2022-05-23 20:41] LABS: HCT 55.8 % (39.6-50.0); HGB 17.8 g/dL (13.0-17.0); MCHC 31.9 g/dL (32.0-37.0); MCV 93.9 fL (80.0-97.0); Mean Platelet Volume 10.6 fL (9.5-12.2); NRBC Per 100 WBC 0 /100 WBCS (0.0-0.0); Platelet Count 264 X 10*3/uL (140-440); RBC 5.94 X 10*6/uL (4.40-5.60); RDW 13.8 % (11.5-14.5); WBC 7.55 X 10*3/uL (4.50-10.00)
== END | disposition home or self-care (01) ==
LOC: LABWHC1 13:42
PROVIDERS: ATTEND Surgery
DX: Z51.81 Encounter for therapeutic drug level monitoring (principal); E34.9 Endocrine disorder, unspecified; D75.1 Secondary polycythemia
CPT/HCPCS: 36415; 84402; 84403; 85027

== ENCOUNTER → 2022-09-20 | Outpatient (CLI) | payer BC ==
[2022-09-20 16:57] LABS: HCT 47.7 % (39.6-50.0); HGB 15.4 d/dL (13.0-17.0); MCH 30.7 pg (27.0-32.0); MCHC 32.3 d/dL (32.0-37.0); NRBC Per 100 WBC 0 X 10*3/uL (0.00-0.01); Platelet Count 238 X 10*3/uL (140-440); RBC 5.02 X 10*6/uL (4.40-5.60); WBC 9.29 X 10*3/uL (4.50-10.00)
[2022-09-20 17:25] LABS: ALT 41 U/L (10-49); AST 20 U/L (14-35); Albumin 4.5 d/dL (3.8-4.9); Albumin/Globulin Ratio 1.67 Ratio (1.60-3.17); Alkaline Phosphatase 68 U/L (41-126); BUN/Creat Ratio 14.76 Ratio (12.00-20.00); Blood Urea Nitrogen 25.1 mg/dL (9.0-27.0); Calcium 9.9 mg/dL (8.7-10.3); Carbon Dioxide 26.5 mmol/L (21.6-31.8); Chloride 103 mmol/L (96-109); Globulin 2.7 d/dL (1.6-3.3); Glucose 98 mg/dL (70-110); Potassium 4.1 mmol/L (3.5-5.5); Sodium 139 mmol/L (135-145); Total Bilirubin 0.7 mg/dL (0.3-1.2); Total Protein 7.2 d/dL (6.2-8.2)
== END | disposition home or self-care (01) ==
LOC: LABWHC1 08:46
PROVIDERS: ATTEND Urology
DX: E29.1 Testicular hypofunction (principal)
CPT/HCPCS: 36415; 80053; 84402; 84403; 85027

== ENCOUNTER → 2023-03-12 | Outpatient (CLI) | payer BC ==
[2023-03-12 16:53] LABS: HCT 45.6 % (39.6-50.0); HGB 14.7 g/dL (13.0-17.0); MCH 30.5 pg (27.0-32.0); MCHC 32.2 g/dL (32.0-37.0); MCV 94.6 FL (80.0-97.0); Mean Platelet Volume 10.8 FL (9.5-12.2); NRBC Per 100 WBC 0 X 10*3/uL (0.00-0.01); Platelet Count 211 X 10*3/uL (140-440); RBC 4.82 X 10*6/uL (4.40-5.60); RDW 12.8 % (11.5-14.5)
[2023-03-12 17:24] LABS: ALT 42 U/L (10-49); AST 25 U/L (14-35); Albumin 4.1 g/dL (3.8-4.9); Albumin/Globulin Ratio 1.58 Ratio (1.60-3.17); Alkaline Phosphatase 62 U/L (41-126); Calcium 9.9 mg/dL (8.7-10.3); Carbon Dioxide 24.1 mmol/L (21.6-31.8); Chloride 104 mmol/L (96-109); Globulin 2.6 g/dL (1.6-3.3); Glucose 109 mg/dL (70-110); Potassium 3.5 mmol/L (3.5-5.5); Prostate Specific Antigen 0.79 ng/mL (0.000-3.500); Sodium 142 mmol/L (135-145); Total Bilirubin 0.5 mg/dL (0.3-1.2); Total Protein 6.7 g/dL (6.2-8.2)
== END | disposition home or self-care (01) ==
LOC: LABWHC1 11:34
PROVIDERS: ATTEND Urology
DX: R97.21 Rising PSA following treatment for malignant neoplasm of prostate (principal)
CPT/HCPCS: 36415; 80053; 84153; 84402; 84403; 85027

== ENCOUNTER → 2023-08-16 | Outpatient (CLI) | payer BC ==
[2023-08-16 17:51] LABS: ALT 31 U/L (10-49); AST 26 U/L (14-35); Albumin 4.6 g/dL (3.8-4.9); Albumin/Globulin Ratio 1.59 Ratio (1.60-3.17); Alkaline Phosphatase 80 U/L (41-126); BUN/Creat Ratio 12.11 Ratio (12.00-20.00); Blood Urea Nitrogen 21.8 mg/dL (9.0-27.0); Calcium 10.5 mg/dL (8.7-10.3); Carbon Dioxide 23.3 mmol/L (21.6-31.8); Chloride 100 mmol/L (96-109); Chol/HDL Ratio 5.01 Ratio; Creatine Kinase 104 U/L (35-257); Globulin 2.9 g/dL (1.6-3.3); Glucose 86 mg/dL (70-110); LDL Cholesterol,Calculated 114.1 mg/dL (0.0-131.0); Phosphorus 3.8 mg/dL (2.4-5.1); Sodium 138 mmol/L (135-145); Total Bilirubin 0.7 mg/dL (0.3-1.2); Total Protein 7.5 g/dL (6.2-8.2); Uric Acid 5.7 mg/dL (3.7-8.7)
[2023-08-16 18:12] LABS: Basophils # (A) 0.07 X 10*3/uL (0.00-0.10); Basophils % (A) 0.6 %; Eosinophils # (A) 0.39 X 10*3/uL (0.04-0.35); Eosinophils % (A) 3.6 %; HCT 58.6 % (39.6-50.0); HGB 18.6 g/dL (13.0-17.0); Lymphocytes # (A) 2.04 X 10*3/uL (0.90-5.00); Lymphocytes % (A) 18.7 %; MCHC 31.7 g/dL (32.0-37.0); MCV 94.7 FL (80.0-97.0); Mean Platelet Volume 11.1 FL (9.5-12.2); Monocytes # (A) 0.82 X 10*3/uL (0.20-1.00); Monocytes % (A) 7.5 %; NRBC Per 100 WBC 0 X 10*3/uL (0.00-0.01); Neutrophils # (A) 7.53 X 10*3/uL (1.80-7.70); Neutrophils % (A) 69.2 %; Platelet Count 250 X 10*3/uL (140-440); RBC 6.19 X 10*6/uL (4.40-5.60); RBC Morphology Normal (Normal); WBC 10.89 X 10*3/uL (4.50-10.00)
[2023-08-16 18:29] LABS: Erythrocyte Sedimentation Rate 30 mm/Hr (0-20)
== END | disposition home or self-care (01) ==
LOC: LABWHC1 08:49
PROVIDERS: ATTEND Family Medicine
DX: Z12.5 Encounter for screening for malignant neoplasm of prostate (principal); I12.9 Hypertensive chronic kidney disease with stage 1 through stage 4 chronic kidney disease, or unspecified chronic kidney disease; M10.9 Gout, unspecified; E78.00 Pure hypercholesterolemia, unspecified; N18.32 Chronic kidney disease, stage 3b
CPT/HCPCS: 36415; 80053; 80061; 80069; 82306; 82550; 83970; 84153; 84550; 85025; 85652